=== PATIENT | female | born 1955 | race Caucasian/White ===

== ENCOUNTER 2020-05-08 09:10 | Emergency (ER) | payer MEDICARE, SELFPAY ==
--- NOTE | 2020-05-08 09:14 | ED.FEMALEGU ---
HPI - Female Genitourinary General Chief complaint: Urogenital-Female Stated complaint: uti Time Seen by Provider: 05/08/20 09:29 Source: patient and RN notes reviewed Mode of arrival: ambulatory Limitations: no limitations History of Present Illness HPI Narrative: 64-year-old female presents with concern for 1 day history of frequency, urgency, dysuria. Denies flank pain, nausea, vomiting, fever, abdominal pain. Reports last bowel movement was yesterday. Denies any abnormal vaginal discharge or bleeding. MD elicited complaint: UTI Related Data Allergies Allergy/AdvReac Type Severity Reaction Status Date / Time Quinolones Allergy Mild Unknown Verified 10/13/19 13:04 gemifloxacin Allergy Unknown Unknown Verified 10/13/19 13:04 methylprednisolone AdvReac Unknown anxiety Verified 05/08/20 09:15 Review of Systems Review of Systems: Narrative: CONSTITUTIONAL: Denies malaise, chills, sweats, or fever. CARDIOVASCULAR: Denies chest pain, palpitations, or edema. RESPIRATORY: Denies cough or dyspnea. GASTROINTESTINAL: Denies abdominal pain, nausea, vomiting, diarrhea GENITOURINARY: Reports dysuria, frequency, urgency. Denies flank pain or hematuria. MUSCULOSKELETAL: Denies back pain or myalgia. All systems reviewed & are unremarkable except as noted in HPI and below PMFSH Social History Social History Smoking status: Never smoker Second hand tobacco smoke exposure: No Alcohol intake: never Substance use: never Substance use type: does not use Additional occupation/education comments: Homemaker Gender identity (if verbalized by the patient): Female Comments At time of signature, agree with nursing past medical, surgical, social and family history. There is no relevant family history pertinent to the presenting complaint Exam Narrative: Exam Narrative: GENERAL: Well-appearing, well-nourished, and in no acute distress. HEAD: Normocephalic. EYES: PERRLA, conjunctivae clear. NECK: Supple. No lymphadenopathy CHEST: Clear to auscultation. No respiratory distress. HEART: Regular rate and rhythm. No murmur heard. Normal peripheral pulses. ABDOMEN: Soft, nontender upon palpation, nondistended, no palpable or pulsatile masses, no guarding. No CVA tenderness SKIN: Warm, dry, no rash. NEURO: Alert and oriented x3. PSYCH: Normal mood and affect Course Course Emergency Course: Patient is aware of diagnosis, understands and agrees to treatment plan. Anticipatory guidance given. Patient agrees to follow-up as directed and is aware of reasons to seek care at the emergency department. Portions of this record may have been created with voice recognition software Vital Signs Vital signs: Vital Signs Temperature 97.9 F 05/08/20 09:25 Pulse Rate 96 05/08/20 09:25 Respiratory Rate 16 05/08/20 09:25 Blood Pressure 184/96 H 05/08/20 09:25 Pulse Oximetry 99 05/08/20 09:25 Temperature 97.9 F 05/08/20 09:25 Pulse Rate 96 05/08/20 09:25 Respiratory Rate 16 05/08/20 09:25 Blood Pressure 184/96 H 05/08/20 09:25 Pulse Oximetry 99 05/08/20 09:25 Reviewed. MDM - Female Genitourinary MDM Narrative Medical decision making narrative: Exam findings and UA show no acute concerns or changes; patient is non-toxic appearing and is in no distress. Patient is appropriate for outpatient treatment and follow-up. Differential Diagnosis Differential diagnosis: Likely urinary tract infection and cystitis Lab Data Labs: Urine Glucose Negative Reference Range: Negative Urine Bilirubin Negative Reference Range: Negative Urine Ketone Negative Reference Range: Negative Urine Specific [place] 1.010 Reference Range:1.001-1.035 Urine Blood Trace Reference Range: Negative * * Urine pH
[2020-05-08 09:25] VITALS: BP 184/96; PULSE 96; RESP 16; TEMP 36.6; O2SAT 99
== END 2020-05-08 09:53 | disposition home or self-care (01) ==
PROVIDERS: Emergency Provider Nurse Practitioner; PCP Family Medicine
DX: R30.0 Dysuria (principal); R39.15 Urgency of urination; R35.0 Frequency of micturition
CPT/HCPCS: 81003; 87086; 87088; 99213; G0463

== ENCOUNTER 2020-08-18 21:56 | Emergency (ER) | payer MEDICARE, SELFPAY ==
--- NOTE | ~2020-08-18 | XR_ITS ---
EXAMINATION: XR chest 1V portable INDICATION: Shortness of breath TECHNIQUE: Portable AP chest at 2318 hours COMPARISON: 12/16/2017 FINDINGS: The lung volumes are low. There are minimal airspace opacities of the lung bases. No pleura l effusion or pneumothorax is identified. The cardiomediastinal silhouette is normal. There are aguilar es of anterior fusion procedure in the lower cervical spine. IMPRESSION: 1. Minimal airspace opacities of the lung bases, consistent with atelectasis versus pneumonia. Reviewed, dictated and finalized at location A. IMPRESSION: 1. Minimal airspace opacities of the lung bases, consistent with atelectasis ve rsus pneumonia.
[2020-08-18 22:04] VITALS: BP 167/94; PULSE 115; RESP 30; TEMP 36.6; O2SAT 100
--- NOTE | 2020-08-18 22:12 | ED.GENADULT ---
HPI - General Adult General Chief complaint: Anxiety Stated complaint: Panic attack Time Seen by Provider: 08/18/20 22:03 Source: patient Mode of arrival: ambulatory Limitations: no limitations History of Present Illness HPI narrative: Patient is a 64-year-old female who presents with panic attack with history of similar occurrence took 2 mg of Xanax prior to arrival patient had a panic attack due to having to bring her to the emergency department who has been sick for the last 2 days with fever patient has historically had panic attack when coming to the hospital. Patient presents with acute panic attack and anxiety Related Data Allergies Allergy/AdvReac Type Severity Reaction Status Date / Time Quinolones Allergy Mild Unknown Verified 08/18/20 22:09 gemifloxacin Allergy Unknown Unknown Verified 08/18/20 22:09 methylprednisolone AdvReac Unknown anxiety Verified 08/18/20 22:09 Review of Systems Review of Systems: All systems reviewed & are unremarkable except as noted in HPI and below PMFSH Past Medical History Medical History (Updated 08/18/20 @ 23:56 by Yogesh Pearce PA-C) Panic disorder [episodic paroxysmal anxiety] Surgical History Surgical History Status post cervical spinal fusion Status post hysterectomy with oophorectomy Social History Social History Smoking status: Never smoker Second hand tobacco smoke exposure: No Alcohol intake: never Substance use: never Substance use type: does not use Additional occupation/education comments: Homemaker Gender identity (if verbalized by the patient): Female Exam Narrative: Exam Narrative: GENERAL: Well-appearing, well-nourished, and in no acute distress. HEAD: Normocephalic, atraumatic. EYES: PERRLA and EOMI. ENT: Nares clear, no rhinorrhea or epistaxis. Mucous membranes moist. Oropharynx without tonsillar hypertrophy exudate or other lesions. CHEST: Clear to auscultation. No respiratory distress. No wheezes rales or rhonchi HEART: Regular rate and rhythm. No murmur heard. EXTREMITIES: Normal range of motion. No edema. SKIN: Warm, dry, no rash. NEURO: No focal deficits. Alert and oriented x3. Cranial nerves II through XII grossly intact PSYCH: Acutely anxious Course Course Emergency Course: Patient remained distressed with panic attack despite multiple medications finally with Ativan and Haldol patient subsided the panic attack. Patient family present resting at this time in no distress with resolution of the panic attack patient was placed on oxygen after given the medication she did desat slightly was placed on nasal cannula and is resting fine in the room in no distress Consultations Consultation #1: Discussed case with primary care who is aware of clinical presentation and diagnosis Date: 08/18/20 Time: 23:55 Vital Signs Vital signs: Vital Signs Temperature 97.9 F 08/18/20 22:04 Pulse Rate 115 H 08/18/20 22:04 Respiratory Rate 30 H 08/18/20 22:04 Blood Pressure 167/94 H 08/18/20 22:04 Pulse Oximetry 100 08/18/20 22:04 Temperature 97.9 F 08/18/20 22:04 Pulse Rate 94 08/18/20 23:51 Respiratory Rate 18 08/18/20 23:51 Blood Pressure 115/81 08/18/20 23:51 Pulse Oximetry 100 08/18/20 23:51 Medical Decision Making MDM Narrative Medical decision making narrative: Patient with panic disorder that was anxious and panicking secondary to her being ill in the emergency department with similar occurrences in the past Vital Signs Vital Signs: Vital Signs Temperature 97.9 F 08/18/20 22:04 Pulse Rate 115 H 08/18/20 22:04 Respiratory Rate 30 H 08/18/20 22:04 Blood Pressure 167/94 H 08/18/20 22:04 Pulse Oximetry 100 08/18/20 22:04 Temperature 97.9 F 08/18/20 22:04 Pulse Rate 94 08/18/20 23:51 Respiratory Rate 18 08/18/20 23:51 Blood Pressure 115/81 10
[2020-08-18] MEDS: diazePAM (*CRX) 5 MG TABLET PO (22:19)
[2020-08-18] MEDS: SODIUM CHLORIDE 0.9% IV 1,000 ML 999 ML IV CONT (23:01)
[2020-08-18] MEDS: HALOPERIDOL LACTATE 5 MG/ML VIAL IM (23:02)
[2020-08-18] MEDS: diphenhydrAMINE HCl INJ 50 MG/ML VIAL 25 MG IV PUSH (23:02)
[2020-08-18] MEDS: LORazepam INJ (*CRX) 2 MG/ML VIAL 1 MG IV PUSH (23:02)
[2020-08-18] MEDS: FAMOTIDINE 20 MG/2 ML VIAL IV PUSH (23:02)
[2020-08-18 23:51] VITALS: BP 115/81; PULSE 94; RESP 18; O2SAT 100
[2020-08-19 02:15] VITALS: BP 115/76; PULSE 69; RESP 16; O2SAT 99
[2020-08-19 03:16] VITALS: BP 115/74; PULSE 68; RESP 15; O2SAT 99
[2020-08-19 03:20] VITALS: BP 115/74; PULSE 115; RESP 15; O2SAT 99
--- NOTE | 2020-08-19 04:02 | PC.NURSE ---
This RN attempted to discharge patient. Upon speaking to patient, patient still seems very fatigued and is having difficulty walking. EDP Eitan notified. Per EDP continue to monitor patient.
[2020-08-19 04:32] LABS: Basophils Percent Auto 0.2 % (0.2-1.2); Eosinophils Percent Auto 0.2 % (0-4.4); Hematocrit 38.7 % (37.0-47.0); Immature Granulocyte Absolute 0.03 K/mm3 (0.00-0.031); Immature Granulocyte Percent A 0.3 % (0-0.5); Lymphocytes Absolute Auto 1.39 K/mm3 (0.9-3.2); Lymphocytes Percent Auto 13.7 % (18.3-44.2); Mean Corpuscular HGB Conc 33.6 g/dl (32-36); Mean Corpuscular Hemoglobin 30.4 pg (26-34); Mean Corpuscular Volume 90.4 fl (80-100); Mean Platelet Volume 10.3 fl (7.4-10.4); Monocytes Absolute Auto 0.8 K/mm3 (0.1-0.6); Neutrophils Absolute Auto 7.9 K/mm3 (1.3-6.7); Neutrophils Percent Auto 77.6 % (45.5-73.1); Platelet Count Result 274 k/mm3 (150-375); Red Blood Count 4.28 M/mm3 (4.2-5.4); Red Cell Distribution Width 13.5 % (11.5-14.5); White Blood Count 10.2 K/mm3 (4.5-10.0)
[2020-08-19 04:35] VITALS: BP 129/69; PULSE 72; RESP 16; TEMP 36.8; O2SAT 96
[2020-08-19 05:22] LABS: Anion Gap 8 mmol/L (8-16); Blood Urea Nitrogen 11 mg/dL (7-17); Calcium 9.6 mg/dL (8.4-10.2); Carbon Dioxide 26 mmol/L (22-30); Chloride 106 mmol/L (98-107); Estimated CRCL calculation 54 ml/min; Estimated Glomerular Filt Rate > 60; Glucose 113 mg/dL (65-105); Potassium 3.7 mmol/L (3.4-5.0); Sodium 140 mmol/L (137-145)
[2020-08-19 14:03] LABS: SARS-CoV-2 RNA PCR Negative
== END 2020-08-19 04:38 | disposition home or self-care (01) ==
PROVIDERS: Emergency Medicine Emergency Medical Services; Emergency Provider Emergency Medicine; PCP Family Medicine
DX: F41.9 Anxiety disorder, unspecified (principal); Z20.828 Contact with and (suspected) exposure to other viral communicable diseases
CPT/HCPCS: 36415; 71045; 80048; 85025; 87635; 96361; 96372; 96374; 96375; 99284; A9270; C9803; J1200; J1630; J2060; J7030; U0003

== ENCOUNTER 2021-10-14 19:31 | Emergency (ER) | payer MEDICARE, SELFPAY ==
--- NOTE | 2021-10-14 19:40 | ED.SKABFB ---
HPI - Skin/Abscess/Foreign Bdy General Chief complaint: Skin/Abscess/Foreign Body Stated complaint: Rash Time Seen by Provider: 10/14/21 19:40 Source: patient Mode of arrival: ambulatory Limitations: no limitations History of Present Illness HPI narrative: Radha Lopez is a 66 yo female with a PMH of anxiety, depression, asthma, [facility]. The rash is a fine papular rash on her trunk and tops of feet arms very little on her hands she was handling leaves under bushes mother put after [place] or corrections today, that she had no gloves on. Hours after the exposure when she was in the house after dinner she noticed that she started breaking a rash initially on her back which was itching it is bilateral on her trunk Related Data Allergies Allergy/AdvReac Type Severity Reaction Status Date / Time Quinolones Allergy Mild Unknown Verified 10/18/20 11:07 gemifloxacin Allergy Unknown Unknown Verified 10/18/20 11:07 methylprednisolone AdvReac Unknown anxiety Verified 10/18/20 11:07 Review of Systems Review of Systems: CONSTITUTIONAL: Denies fever, chills, sweats. EYES: Denies visual changes, redness, discharge. ENT: Denies rhinorrhea, congestion, sore throat, otalgia. CARDIOVASCULAR: Denies chest pain, palpitations, edema. RESPIRATORY: Denies dyspnea, wheezing, cough GASTROINTESTINAL: Denies abdominal pain, nausea, vomiting, diarrhea. GENITOURINARY: Denies dysuria, hematuria, abnormal discharge SKIN: Rash on trunk NEUROLOGIC: Denies numbness, or focal weakness. PSYCHIATRIC: Denies anxiety or depression. [facility] Past Medical History Medical History Major depressive disorder, single episode, unspecified Osteopenia Panic disorder [episodic paroxysmal anxiety] Surgical History Surgical History Status post cervical spinal fusion Status post hysterectomy with oophorectomy Family History Family History Father Leukemia Mother Family history of osteoporosis Other Asthma Family history of arthritis Family history of hearing loss Family history of thyroid disease Social History Social History Smoking status: Never smoker Second hand tobacco smoke exposure: No Alcohol intake: never Substance use: never Substance use type: does not use Additional occupation/education comments: Homemaker Gender identity (if verbalized by the patient): Female Comments At time of signature, I agree with nursing past medical, surgical, social and family history. There is no relevant family history pertinent to the presenting complaint. Blood pressure elevated at this visit-referred back to PCP Exam Narrative: GENERAL: This is a well-nourished, well-developed patient, in mild distress. HEAD: normocephalic, atraumatic. EYES: Sclera clear/white. Vision is grossly intact. EARS: External ears normal, . Hearing grossly intact. NOSE: External nose normal without nasal discharge, nares without redness, no rhinorrhea. THROAT: Mucous membranes moist, posterior pharynx pink-no swelling of lips or tongue posterior pharynx appears clear NECK: Neck supple, non-tender CARDIOVASCULAR: Regular rate and rhythm without murmurs, gallops, or rubs. RESPIRATORY: Clear to auscultation. Breath sounds equal bilaterally. No wheezes, rales, or rhonchi. GASTROINTESTINAL: Abdomen soft, non-tender, SKIN: warm, intact with fine papular rash on torso arms and feet, very little on hands, states is pruritic NEURO: awake, alert, and oriented to person, place and time. There were no obvious focal neurologic abnormalities. Steady gait EXTREMITIES: Normal range of motion. BACK: Nontender without deformity Course Course Emergency Course: Patient here with pruritic fine papular rash on torso top of feet arms vivienne
[2021-10-14 19:42] VITALS: BP 159/88; PULSE 91; RESP 18; TEMP 37.1; O2SAT 99
[2021-10-14 19:43] VITALS: BP 159/88; PULSE 91; RESP 18; TEMP 37.1; O2SAT 99
[2021-10-14] MEDS: diphenhydrAMINE HCl CAP 25 MG CAPSULE PO (20:04)
== END 2021-10-14 20:16 | disposition home or self-care (01) ==
PROVIDERS: Emergency Provider Nurse Practitioner; PCP Family Medicine
DX: L23.7 Allergic contact dermatitis due to plants, except food (principal)
CPT/HCPCS: 99213; A9270; G0463; J8540

== ENCOUNTER 2022-12-14 00:16 | Day surgery (SDC) | payer MEDICARE, OTHER, SELFPAY ==
[2022-11-28 13:48] VITALS: BMI 26.1
--- NOTE | 2022-12-13 13:14 | PM.HPGS ---
History of Present Illness History of Present Illness Consent: Risks, benefits, and alternatives have been discussed and questions answered. Patient agrees to proceed with procedure. Chief complaint: neoplasm screening Narrative: Radha Lopez is a 67 year old female Was referred for colon cancer screening. Her last colonoscopy was 10 years ago. At that time she was found to have internal and external hemorrhoids. She has had change in her bowel habits recently. Review of Systems Review of Systems: All systems reviewed & are unremarkable except as noted in HPI and below PMFSH Past Medical History Medical History Major depressive disorder, single episode, unspecified Osteopenia Panic disorder [episodic paroxysmal anxiety] Surgical History Surgical History Status post cervical spinal fusion Status post hysterectomy with oophorectomy Family History Family History Father Leukemia Mother Family history of osteoporosis Other Asthma Family history of arthritis Family history of hearing loss Family history of thyroid disease Social History Social History Smoking status: Never smoker Second hand tobacco smoke exposure: No Alcohol intake: never Substance use: never Substance use type: does not use Living arrangements: with family 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 Gender identity (if verbalized by the patient): Female Spiritual care concerns: No Meds Home Medications and Allergies Home Medications Medication Instructions Recorded Confirmed Type alprazolam 0.25 mg tablet (Xanax) 0.25 mg PO TID PRN anxiety #60 tabs 11/21/22 11/28/22 Rx escitalopram oxalate 10 mg tablet 10 mg PO DAILY 11/28/22 11/28/22 History omeprazole 20 mg capsule,delayed 20 mg PO DAILY 11/28/22 11/28/22 History release omeprazole 20 mg-sodium 1 cap PO DAILY 11/28/22 11/28/22 History bicarbonate 1.1 gram capsule (Zegerid) rizatriptan 10 mg disintegrating 10 mg PO DAILY PRN migraine 11/28/22 11/28/22 History tablet (Maxalt-SERVICE CONTROL OPERATOR) Allergies Allergy/AdvReac Type Severity Reaction Status Date / Time Quinolones Allergy Mild Unknown Verified 12/14/22 08:45 gemifloxacin Allergy Unknown Unknown Verified 12/14/22 08:45 methylprednisolone AdvReac Unknown anxiety Verified 12/14/22 08:45 Exam Const: General: alert Orientation/consciousness: patient oriented x3 Resp: Auscultation: clear to auscultation bilaterally Cardio: Rhythm: regular rhythm GI: GI Palp: Yes Soft to palpation and No Tenderness to palpation present (GI) Neuro: General: patient oriented x3 Assessment and Plan Assessment and plan (1) Colon cancer screening: Code(s): Z12.11 - Encounter for screening for malignant neoplasm of colon Status: Acute Assessment and Plan: Colonoscopy with possible biopsy or polypectomy or cautery or injection of substances.
[2022-12-14 08:46] VITALS: BP 153/88; PULSE 90; RESP 20; TEMP 36.4; O2SAT 100; BMI 25.6
[2022-12-14] MEDS: LACTATED RINGERS 1,000 ML 150 ML IV CONT (08:56)
--- NOTE | 2022-12-14 09:50 | WPDANESEPPF ---
Anes - Initial Pre Proc Eval Procedure: Operation Date: 12/14/22 10:00 Proposed Procedures p Screening Colonoscopy - Eliceo Delgado MD Date/Time: 12/14/22 09:50 Surgeon: Eliceo Delgado MD Pre Op Diagnosis: neoplasm screening Patient Data Age: 67 Gender: F Height: 1.6 m Weight: 65.7 kg Last Vital Signs Temp 97.6 F 12/14/22 08:46 Pulse 90 12/14/22 08:46 Resp 20 12/14/22 08:46 BP 153/88 H 12/14/22 08:46 Pulse Ox 100 12/14/22 08:46 O2 Del Method Room Air 12/14/22 08:46 Allergies Allergy/AdvReac Type Severity Reaction Status Date / Time Quinolones Allergy Mild Unknown Verified 12/14/22 08:45 gemifloxacin Allergy Unknown Unknown Verified 12/14/22 08:45 methylprednisolone AdvReac Unknown anxiety Verified 12/14/22 08:45 Home Medications Medication Instructions Recorded Confirmed Type alprazolam 0.25 mg tablet (Xanax) 0.25 mg PO TID PRN anxiety #60 tabs 11/21/22 11/28/22 Rx escitalopram oxalate 10 mg tablet 10 mg PO DAILY 11/28/22 11/28/22 History omeprazole 20 mg capsule,delayed 20 mg PO DAILY 11/28/22 11/28/22 History release omeprazole 20 mg-sodium 1 cap PO DAILY 11/28/22 11/28/22 History bicarbonate 1.1 gram capsule (Zegerid) rizatriptan 10 mg disintegrating 10 mg PO DAILY PRN migraine 11/28/22 11/28/22 History tablet (Maxalt-IS/IT PROJECT MANAGER) Patient hx anesthesia problems: none Family hx anesthesia problems: none Results Review: All pre-operative results and documents have been reviewed as part of the pre-operative evaluation. [facility] Past Medical History Medical History Major depressive disorder, single episode, unspecified Osteopenia Panic disorder [episodic paroxysmal anxiety] Surgical History Surgical History Status post cervical spinal fusion Status post hysterectomy with oophorectomy Family History Family History Father Leukemia Mother Family history of osteoporosis Other Asthma Family history of arthritis Family history of hearing loss Family history of thyroid disease Social History Social History Smoking status: Never smoker Second hand tobacco smoke exposure: No Alcohol intake: never Substance use: never Substance use type: does not use Living arrangements: with family 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 Gender identity (if verbalized by the patient): Female Spiritual care concerns: No Anes - Eval Final PreProcedure Day of Procedure 12/14/22 09:50 Patient weight: normal Heart: regular rate and rhythm Lungs: clear to auscultation Airway: Mallampati scale class II Neurological: alert and oriented Last oral intake: >/= 8 hours ASA classification: II Emergent: no Anesthetic plan: proceed Anesthesia type and monitoring: general GIVS and standard monitoring Results Review: All pre-operative results and documents have been reviewed as part of the pre-operative evaluation. Informed Consent: The patient's anesthetic plan and its attendant risks and benefits were discussed with the patient/family/POA. Questions were solicited and answers provided to the satisfaction of the patient/family/POA.
[2022-12-14 10:22] VITALS: BP 123/65; PULSE 77; RESP 20; O2SAT 100
[2022-12-14 10:32] VITALS: BP 135/65; PULSE 75; RESP 21; O2SAT 99
[2022-12-14 10:42] VITALS: BP 150/78; PULSE 80; RESP 22; O2SAT 100
== END 2022-12-14 10:52 | disposition home or self-care (01) ==
PROVIDERS: PCP Family Medicine; Visit Provider Internal Medicine Gastroenterology
PROC: 0DJD8ZZ Inspection of Lower Intestinal Tract, Via Natural or Artificial Opening Endoscopic (ICD-10-PCS; CPT 45378; principal; 2022-12-14 10:00)
DX: Z12.11 Encounter for screening for malignant neoplasm of colon (principal); K57.30 Diverticulosis of large intestine without perforation or abscess without bleeding; F41.0 Panic disorder [episodic paroxysmal anxiety]; F32.A Depression, unspecified; Z98.1 Arthrodesis status
CPT/HCPCS: G0121; 36415; 71045; 80053; 83735; 84484; 85025; 85610; 85730; 93005; 96360; 96361; 99284; J2704; J7030; J7120

== ENCOUNTER 2022-12-14 00:51 | Emergency (ER) | payer MEDICARE, SELFPAY ==
[2022-12-14] VITALS (20 sets, daily range): BP systolic 134–153; BP diastolic 75–91; PULSE 72–111; RESP 14–26; TEMP 37.1; O2SAT 97–100
--- NOTE | ~2022-12-14 | XR_ITS ---
Portable chest x-ray Comparison: 08/18/2020 Clinical History: Syncope Findings: Lungs are clear, without focal consolidation or pleural effusion. Cardiomediastinal silho uette is stable. Stable cervical spine fixation hardware noted. Impression: Clear lungs. Reviewed, dictated and finalized at [facility]. TH SAFETY COORDINATOR Impression: Clear lungs.
--- NOTE | 2022-12-14 01:00 | ECG_ITS ---
Measurements Intervals [place] Rate: 101 P: 65 NV: 140 QRS: 63 QRSD: 78 T: 70 QT: 320 QTc: 416 Interpretive Statements SINUS TACHYCARDIA NONSPECIFIC ST & T-WAVE ABNORMALITY ABNORMAL ECG NO PREVIOUS ECG AVAILABLE FOR COMPARISON Electronically Signed On 12-14-2022 10:07:20 SYSTEM CONSULTANT by Jim Whitfield M.D.
--- NOTE | 2022-12-14 02:05 | ED.SYNCOPE ---
HPI - Syncope General Chief Complaint: Syncope Stated Complaint: syncope Time Seen by Provider: 12/14/22 01:49 Source: patient, RN notes reviewed and old records reviewed Mode of arrival: ambulatory Limitations: no limitations History of Present Illness HPI narrative: This is a 67 year old female with history of anxiety who presents for evaluation of a syncopal episode. PAtient states that she started her bowel prep tonight for her colonoscopy in the morning. She states she took a xanax around 11pm to help her sleep. She developed nausea so she jump out of bed, and she ran to restroom. She states she developed dizziness and she sat on toilet. Her states she lean to side and she may be passed out for 30 seconds. He immediately called 911. She denies chest pain, sob, or vomiting. She is having diarrhea due to her bowel prep. Related Data Home Medications Medication Instructions Recorded Confirmed escitalopram oxalate 10 mg tablet 10 mg PO DAILY 11/28/22 11/28/22 omeprazole 20 mg capsule,delayed 20 mg PO DAILY 11/28/22 11/28/22 release omeprazole 20 mg-sodium 1 cap PO DAILY 11/28/22 11/28/22 bicarbonate 1.1 gram capsule (Zegerid) rizatriptan 10 mg disintegrating 10 mg PO DAILY PRN migraine 11/28/22 11/28/22 tablet (Maxalt-SALES SERVICE SUPERVISOR) Allergies Allergy/AdvReac Type Severity Reaction Status Date / Time Quinolones Allergy Mild Unknown Verified 12/14/22 01:59 gemifloxacin Allergy Unknown Unknown Verified 12/14/22 01:59 methylprednisolone AdvReac Unknown anxiety Verified 12/14/22 01:59 Review of Systems Constitutional: Constitutional: Reports fatigue and Denies weakness Cardiovascular: Cardiovascular: Reports syncope, Denies rapid heart rate, Denies irregular heart rhythm, Denies leg edema and Denies dyspnea Respiratory: Respiratory: Denies chest congestion, Denies hemoptysis, Denies excessive phlegm production and Denies dyspnea Gastrointestinal: Gastrointestinal: Reports abdominal pain, Reports bloating, Denies hematochezia, Reports diarrhea, Reports nausea and Denies vomiting Genitourinary: Genitourinary: Denies hematuria and Denies dysuria Musculoskeletal: Musculoskeletal: Denies joint swelling, Denies loss of height and Denies muscle weakness Neurologic: Reports syncope, Denies focal weakness and Denies weakness PMFSH Past Medical History Medical History Major depressive disorder, single episode, unspecified Osteopenia Panic disorder [episodic paroxysmal anxiety] Surgical History Surgical History Status post cervical spinal fusion Status post hysterectomy with oophorectomy Family History Family History Father Leukemia Mother Family history of osteoporosis Other Asthma Family history of arthritis Family history of hearing loss Family history of thyroid disease Social History Social History Smoking status: Never smoker Second hand tobacco smoke exposure: No Alcohol intake: never Substance use: never Substance use type: does not use Living arrangements: with family 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 Gender identity (if verbalized by the patient): Female Spiritual care concerns: No Exam Const: General: no acute distress and alert Nutritional Appearance: well nourished Orientation/consciousness: patient oriented x3 Limitations: no limitations HENMT: Head: normal to inspection Eyes: EOM: EOMs intact bilaterally Neck: Neck: normal visual inspection Chest: Chest palpation & inspection: normal inspection of the chest Resp: Effort & Inspection: normal respiratory effort Auscultation: clear to auscultation bilaterally Cardio: Rate: tachycardic Rhythm: regular rhythm Heart sounds: no murm
[2022-12-14 02:22] LABS: Basophils Percent Auto 0.3 % (0.2-1.2); Eosinophils Absolute Auto 0.1 K/mm3 (0-0.3); Eosinophils Percent Auto 0.9 % (0-4.4); Hemoglobin 13.9 g/dL (12.0-15.0); Immature Granulocyte Absolute 0.03 K/mm3 (0.00-0.031); Immature Granulocyte Percent A 0.3 % (0-0.5); Lymphocytes Absolute Auto 1.27 K/mm3 (0.9-3.2); Lymphocytes Percent Auto 12.2 % (18.3-44.2); Mean Corpuscular HGB Conc 33.1 g/dl (32-36); Mean Corpuscular Volume 90.7 fl (80-100); Mean Platelet Volume 9.9 fl (7.4-10.4); Monocytes Absolute Auto 0.8 K/mm3 (0.1-0.6); Monocytes Percent Auto 7.5 % (2.6-8.5); Neutrophils Absolute Auto 8.2 K/mm3 (1.3-6.7); Neutrophils Percent Auto 78.8 % (45.5-73.1); Platelet Count Result 289 k/mm3 (150-375); Red Blood Count 4.63 M/mm3 (4.2-5.4); Red Cell Distribution Width 13.5 % (11.5-14.5); White Blood Count 10.4 K/mm3 (4.5-10.0)
[2022-12-14] MEDS: SODIUM CHLORIDE 0.9% IV 1,000 ML 999 ML IV CONT ×2 (02:29→03:18)
[2022-12-14 02:32] LABS: Alanine Aminotransferase 21 U/L (6-35); Albumin Level 4.2 g/dL (3.5-5.1); Alkaline Phosphatase 70 U/L (38-126); Anion Gap 8 mmol/L (8-16); Aspartate Amino Transferase 26 U/L (14-36); Bilirubin,Total 0.6 mg/dL (0.2-1.3); Blood Urea Nitrogen 9 mg/dL (7-17); Carbon Dioxide 24 mmol/L (22-30); Chloride 106 mmol/L (98-107); Estimated CRCL calculation 62 ml/min; Estimated Glomerular Filt Rate > 60; Glucose 149 mg/dL (65-110); Magnesium 1.9 mg/dL (1.6-2.3); Potassium 3.4 mmol/L (3.4-5.0); Sodium 138 mmol/L (137-145)
[2022-12-14 02:36] LABS: INR 1.1; Partial Thromboplastin Time 31.1 SECONDS (22.3-36.8); Prothrombin Time 13.6 Seconds (11.1-14.7)
[2022-12-14 02:44] LABS: Troponin I < 0.012 ng/mL (0.000-0.034)
--- NOTE | 2022-12-14 03:05 | PC.NURSE ---
patient ambulated with steady gait and standby assistance. states she still feels weak, but denies dizziness.
== END 2022-12-14 05:12 | disposition home or self-care (01) ==
PROVIDERS: Emergency Provider General Practice; PCP Family Medicine
DX: R55 Syncope and collapse (principal); F32.9 Major depressive disorder, single episode, unspecified; F41.0 Panic disorder [episodic paroxysmal anxiety]; Z98.1 Arthrodesis status; Z90.710 Acquired absence of both cervix and uterus; R00.0 Tachycardia, unspecified; R94.31 Abnormal electrocardiogram [ECG] [EKG]
CPT/HCPCS: 36415; 71045; 80053; 83735; 84484; 85025; 85610; 85730; 93005; 96360; 96361; 99284; J7030

== ENCOUNTER 2024-08-28 15:28 | Emergency (ER) | payer MEDICARE, OTHER, SELFPAY ==
--- NOTE | ~2024-08-28 | XR_ITS ---
EXAMINATION: XR knee RT min 4V DATE: 08/28/2024 16:01 INDICATION: Right knee pain and swelling. TECHNIQUE: 4 views of right knee including standing views were obtained. COMPARISON: None. FINDINGS: Alignment is normal. No fracture. There is mild tricompartmental osteoarthritis. There is a moderate-sized knee joint effusion. IMPRESSION: 1. Mild right knee osteoarthritis. 2. Moderate-sized knee joint effusion. Reviewed, dictated and finalized at location A.
[2024-08-28 15:38] VITALS: BP 111/96; PULSE 97; RESP 20; TEMP 37.5; O2SAT 97
--- NOTE | 2024-08-28 15:45 | ED.GENADULT ---
HPI - General Adult General Chief complaint: Extremity Problem,Nontraumatic Stated complaint: Right Knee Pain Time Seen by Provider: 08/28/24 15:45 Source: patient Mode of arrival: ambulatory Limitations: no limitations History of Present Illness HPI narrative: 69 yo F presents with c/o R knee pain and swelling for 1 month. States she has always had some mild pain to both knees that she assumed was from arthritis but has never had pain like she has now. Pain started after painting her bedroom. Was up and down a ladder several times. States R knee feels tight. Pain with flexion and extension. Worse when bearing weight. All systems reviewed and negative except as noted above. Related Data Home Medications Medication Instructions Recorded Confirmed multivit with min-folic 1 tablet PO DAILY 01/31/24 08/28/24 acid-lutein 400 mcg-250 mcg chewable tablet (Centrum Silver) Allergies Allergy/AdvReac Type Severity Reaction Status Date / Time methylprednisolone AdvReac Unknown anxiety Verified 08/28/24 15:37 Review of Systems Review of Systems: CONSTITUTIONAL: Denies fever, chills, or sweats. EYES: Denies visual changes, redness, or discharge. ENT: Denies rhinorrhea, congestion, sore throat, or otalgia. CARDIOVASCULAR: Denies chest pain, palpitations, or edema. RESPIRATORY: Denies cough or dyspnea. GASTROINTESTINAL: Denies abdominal pain, nausea, vomiting, or diarrhea. GENITOURINARY: Denies dysuria or hematuria. SKIN: Denies rash or itching. MUSCULOSKELETAL: Denies back pain . Reports pain and swelling to right knee. NEUROLOGIC: Denies headache, numbness, or weakness. PSYCHIATRIC: Denies anxiety or depression. All other systems reviewed are negative, except as documented in HPI. [facility] Past Medical History Medical History Major depressive disorder, single episode, unspecified Osteopenia Panic disorder [episodic paroxysmal anxiety] Surgical History Surgical History Hx of tonsillectomy Status post cervical spinal fusion Status post hysterectomy with oophorectomy Family History Family History Father Leukemia Mother Family history of osteoporosis Heart disease Thyroid disorder Other Asthma Family history of arthritis Family history of hearing loss Family history of thyroid disease Social History Social History Smoking status: Never smoker Second hand tobacco smoke exposure: No Alcohol intake: never Substance use: never Substance use type: does not use Living arrangements: with family 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 Gender identity (if verbalized by the patient): Female Spiritual care concerns: No Comments At time of signature, agree with nursing past medical, surgical, social and family history. There is no relevant family history pertinent to the presenting complaint. Exam Narrative: GENERAL: This is a well-nourished, well-developed patient, in no apparent distress. HEAD: normocephalic, atraumatic. EYES: PERRL. Sclera clear/white. Vision is grossly intact. EARS: External ears normal NOSE: External nose normal NECK: Neck supple, non-tender without lymphadenopathy, masses or thyromegaly. CARDIOVASCULAR: Regular rate and rhythm without murmurs, gallops, or rubs. RESPIRATORY: Clear to auscultation. Breath sounds equal bilaterally. No wheezes, rales, or rhonchi. SKIN: warm, Dry, intact with no suspicious lesions or rash, good texture and turgor. NEURO: awake, alert, and oriented to person, place and time. There were no obvious focal neurologic abnormalities. EXTREMITIES:moderate swelling to R knee. No tenderness on palpation. decreased flexion and extension due to pain and swelling. C
== END 2024-08-28 16:30 | disposition home or self-care (01) ==
PROVIDERS: Emergency Provider Nurse Practitioner Family; PCP Family Medicine
DX: M25.461 Effusion, right knee (principal); M17.11 Unilateral primary osteoarthritis, right knee; M85.80 Other specified disorders of bone density and structure, unspecified site
CPT/HCPCS: 73564; 99213; G0463

== ENCOUNTER 2024-10-08 00:15 | Day surgery (SDC) | payer MEDICARE, OTHER, SELFPAY ==
[2024-09-25 13:20] VITALS: BMI 26.5
--- NOTE | 2024-09-25 13:31 | PC.NURSE ---
Report to the Outpatient Waiting Room, entrance under the green pavilion located off [facility], at time _0800am on date _10/08/24 . Planned Procedure Time: _10:00am .? Time changes happen often and if your time is changed the preop area will call you the afternoon before. - You and your visitor will be asked to self-screen and do not enter if you have any COVID symptoms. Please call surgeon if you need to reschedule. - A mask is optional within the hospital at this time. Patients may have clear liquids (water, carbonated beverages, clear teas, apple juice) until 3 hours prior to surgery with a maximum of 20 ounces. - No food from midnight until time of surgery and no smoking (07;00am) Take only the following medications with a SIP of water on the morning of surgery: __Escitalopram, and alprazolam as needed DO NOT STOP ANY OF YOUR OTHER PRESCRIPTION MEDICATIONS PRIOR TO SURGERY EXCEPT THE FOLLOWING Medications to discontinue per physician Hold all vitamins and supplements for 3 days prior per Anesthesia Date to take last dose____10/04/24 Please no make-up, nail vietnamese, hairspray, perfume, deodorant, or body powder the day of surgery.? No jewelry (including any body piercings) or valuables the day of surgery, leave them at home.? Please take a shower or bath the night before, or the morning of, surgery with an antibacterial soap.? Wear comfortable, loose fitting clothing.? - Jewelry must be removed prior to entering the operating room.? Rings and piercings that are not removed may be cut off. - The hospital will not accept responsibility for valuables.? - Please leave all valuables, including medications, at home the day of surgery. If you are going home after surgery, a licensed flatbed driver must drive you home.? - NO public transportation without another adult if you receive anesthesia. - We recommend that an adult stay with you for 24 hours following discharge. - We also recommend that you do not drive, make important decision, drink alcoholic beverages, or take any drugs that were not prescribed by your health care provider for at least 24 hours after your discharge time. Follow any additional instructions given to you from your surgeon. Telephone instructions given to _Patient and asked if any additional questions and then verbalized understanding. Patient advised to call surgeon office or pre surgery nurse liaison [phone] if any additional questions.
--- NOTE | 2024-10-07 07:23 | P.HP_ITS ---
H&P: HPI History of Present Illness Date/Time: 10/07/24 07:23 Chief Complaint: Patient has catching and locking of her right knee with the meniscal tear. She has failed conservative treatment like to consider arthroscopic intervention. Review of Systems Musculoskeletal: Musculoskeletal: Reports arthralgias, Reports joint swelling and Reports stiffness PMFSH Past Medical History Medical History Major depressive disorder, single episode, unspecified Osteopenia Panic disorder [episodic paroxysmal anxiety] Surgical History Surgical History Hx of tonsillectomy Status post cervical spinal fusion Status post hysterectomy with oophorectomy Family History Family History Father Leukemia Mother Family history of osteoporosis Heart disease Thyroid disorder Other Asthma Family history of arthritis Family history of hearing loss Family history of thyroid disease Social History Social History Smoking status: Never smoker Second hand tobacco smoke exposure: No Alcohol intake: never Substance use: never Substance use type: does not use Current Housing: Decline to Answer Concerned About Future Housing: Decline to Answer Difficulty Paying Gas/Electric Bills: Decline to Answer Difficulty Paying for Meds: Decline to Answer Currently Unemployed: Decline to Answer Education: Decline to Answer Difficulty w/ Childcare or Family Care: Decline to Answer Living arrangements: with family Additional living arrangements comments: 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 Gender identity (if verbalized by the patient): Female Spiritual care concerns: No Meds Home Medications and Allergies Home Medications Medication Instructions Recorded Confirmed Type znlkmlmczdjo-zawdadu-rcais acid 1 tablet PO DAILY 01/31/24 09/30/24 History 400 mcg-lutein 250 mcg chewable tablet (Centrum Silver) rizatriptan 10 mg disintegrating 10 mg PO DAILY PRN migraine #10 05/16/24 09/30/24 Rx tablet (Maxalt-[employer]) tabs escitalopram oxalate 10 mg tablet 10 mg PO DAILY #90 tabs 09/01/24 09/30/24 Rx alprazolam 0.25 mg tablet (Xanax) 0.25 mg PO TID PRN anxiety #60 tabs 09/30/24 09/30/24 Rx Allergies Allergy/AdvReac Type Severity Reaction Status Date / Time methylprednisolone AdvReac Intermediate Headache Verified 09/30/24 13:02 Exam Narrative: On exam she has mechanical catching and locking with manipulation. She is tender medially has a positive Elly's. Neurologically she is intact. She walks with an antalgic gait. Eyes: General: appearance normal, both eyes and all related structures Neck: Neck: supple Resp: Effort & Inspection: normal respiratory effort Cardio: Rate: regular rate Rhythm: regular rhythm Knee X-Ray 08/28/24 Assessment and Plan Assessment and plan (1) Acute medial meniscus tear of right knee: Code(s): S83.241A - Other tear of medial meniscus, current injury, right knee, initial encounter Status: Acute Assessment and Plan: Patient has a meniscal tear right. She has failed conservative treatment. She has mechanical catching and locking. She would like to consider arthroscopic i ntervention with partial medial meniscectomy. I have discussed this with her risks benefits limitations and alternatives in detail. Will proceed per her request.
[2024-10-08] VITALS (13 sets, daily range): BP systolic 86–161; BP diastolic 52–82; PULSE 68–98; RESP 14–20; TEMP 36.5–36.7; O2SAT 95–100
[2024-10-08] MEDS: ACETAMINOPHEN 500 MG TABLET 1000 MG PO (08:35)
[2024-10-08] MEDS: KETOROLAC 15 MG/ML VIAL (*BKC) IV PUSH (08:43)
--- NOTE | 2024-10-08 08:59 | WPDHPUPDATE1 ---
History and Physical Update Update Date/Time: 10/08/24 08:59 History and Physical has been reviewed, including an updated exam of the patient. There are NO changes in the patient's condition. Risks, benefits, and alternatives have been discussed and questions answered. Patient agrees to proceed with procedure.
--- NOTE | 2024-10-08 09:05 | WPDANESEPPF ---
Anes - Initial Pre Proc Eval Procedure: Operation Date: 10/08/24 10:00 Proposed Procedures p Right Knee Arthroscopy, Partial Meniscectomy, Proceed As Indicated - Ryan Dominguez MD Date/Time: 10/08/24 09:05 Surgeon: Ryan Dominguez MD Pre Op Diagnosis: right medial meniscal tear Patient Data Age: 69 Gender: F Height: 1.6 m Weight: 66.6 kg Last Vital Signs Temp 36.7 C 10/08/24 08:17 Pulse 91 10/08/24 08:17 Resp 18 10/08/24 08:17 BP 161/82 H 10/08/24 08:17 Pulse Ox 95 10/08/24 08:17 O2 Del Method Room Air 10/08/24 08:17 Allergies Allergy/AdvReac Type Severity Reaction Status Date / Time methylprednisolone AdvReac Intermediate Headache Verified 10/08/24 08:43 Home Medications Medication Instructions Recorded Confirmed Type wrpycubscszj-awltsyl-bszlk acid 1 tablet PO DAILY 01/31/24 09/30/24 History 400 mcg-lutein 250 mcg chewable tablet (Centrum Silver) rizatriptan 10 mg disintegrating 10 mg PO DAILY PRN migraine #10 05/16/24 09/30/24 Rx tablet (Maxalt-[employer]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 [facility] Past Medical History Medical History Major depressive disorder, single episode, unspecified Osteopenia Panic disorder [episodic paroxysmal anxiety] Surgical History Surgical History Hx of tonsillectomy Status post cervical spinal fusion Status post hysterectomy with oophorectomy Family History Family History Father Leukemia Mother Family history of osteoporosis Heart disease Thyroid disorder Other Asthma Family history of arthritis Family history of hearing loss Family history of thyroid disease Social History Social History Smoking status: Never smoker Second hand tobacco smoke exposure: No Alcohol intake: never Substance use: never Substance use type: does not use Current Housing: Decline to Answer Concerned About Future Housing: Decline to Answer Difficulty Paying Gas/Electric Bills: Decline to Answer Difficulty Paying for Meds: Decline to Answer Currently Unemployed: Decline to Answer Education: Decline to Answer Difficulty w/ Childcare or Family Care: Decline to Answer Living arrangements: with family Additional living arrangements comments: 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 Informed Consent: The patient's anesthetic plan and its attendant risks and benefits were discussed with the patient/family/POA. Questions were solicited and answers provided to the satisfaction of the patient/family/POA.
[2024-10-08] MEDS: LIDO 1%/EPINEPHRINE 1:100,000 50 ML VIAL 30 ML INFILTRATE (09:34)
--- NOTE | 2024-10-08 10:17 | W.PM.PROC2 ---
Procedure Note - Detailed Date of Procedure 10/08/24 Pre-op Diagnosis RIGHT medial meniscal tear Post-op Diagnosis Same Procedure Performed RIGHT knee arthroscopy with partial meniscectomy Surgeon Ryan Dominguez MD Anesthesia General Findings Pain and Catching Description of Procedure Patient brought to operating room # 7. An anesthetic was administered. The knee was sterilely prepped and draped in the usual manner. Standard portals were used. Superior medial portal was used for the outflow cannula, inferior lateral portal was used for the scope, inferior medial portal was used for the instruments. Arthroscopy was performed, the patellar femoral joint degenerative changes. The medial compartment showed a complex tear. The lateral compartment showed fraying. The ACL was intact. Using baskets and navid the meniscal tear was trimmed back to a stable base so the nothing further could be pulled into the joint. Any loose or delaminated fragments were gently trimmed to a stable base. At this point the instruments were withdrawn, sutures placed and patient left the operating room in satisfactory condition. Estimated Blood Loss 20 Drains No Packing No Pathology None sent Complications No immediate complications Condition Stable Disposition PACU [facility] Billing Surgery - Charge Forward: Surgery Billing ([id number] Arthroscopy partial meniscectomy)
[2024-10-08] MEDS: LACTATED RINGERS 1,000 ML 30 ML IV CONT (10:22)
== END 2024-10-08 13:52 | disposition home or self-care (01) ==
PROVIDERS: PCP Family Medicine; Visit Provider Orthopaedic Surgery
PROC: (CPT 29870; principal; 2024-10-08 10:00)
DX: M23.331 Other meniscus derangements, other medial meniscus, right knee (principal); F41.0 Panic disorder [episodic paroxysmal anxiety]; F32.9 Major depressive disorder, single episode, unspecified; Z98.1 Arthrodesis status
CPT/HCPCS: 29881; A9270; J0330; J1100; J1885; J2003; J2004; J2405; J2704; J3010; J7120

== ENCOUNTER 2024-12-29 16:30 | Inpatient (IN) | payer MEDICARE, SELFPAY ==
[2024-12-29] VITALS (10 sets, daily range): BP systolic 144–194; BP diastolic 72–94; PULSE 88–107; RESP 16–18; TEMP 36.6–36.9; O2SAT 95–100; BMI 26.2
--- NOTE | ~2024-12-29 | NM_ITS ---
EXAMINATION: NM john stress w perfusion DATE: 12/31/2024 10:37 FAST FOOD MANAGER INDICATION: Chest pain TECHNIQUE: Rest images were obtained following intravenous administration of 10 mCi Tc99m tetrofosmin (Myoview). The patient was infused intravenously with Lexiscan (regadenoson). Then, 31.8 mCi Tc99m t etrofosmin (Myoview) was administered intravenously, and stress images were obtained. Data was recons tructed into short axis and horizontal and vertical long axis SPECT images. Gated SPECT images were a lso obtained. COMPARISON: None. FINDINGS: There is no definite reversible or fixed perfusion abnormality to suggest ischemia or infar ction. There is no segmental wall motion abnormality. Left ventricular ejection fraction measures 7 0%. IMPRESSION: 1. No definite ischemia or infarct. 2. Normal left ventricular ejection fraction measuring 70%. Reviewed, dictated and finalized at location B. FOOD MANAGER
--- NOTE | ~2024-12-29 | US_ITS ---
EXAMINATION: US venous doppler LE RT DATE: 12/30/2024 11:45 INDICATION: Right lower limb pain and swelling. TECHNIQUE: Grayscale ultrasound images without and with compression and Doppler ultrasound images of the right lower extremity veins were obtained. COMPARISON: Ultrasound 04/23/2013 FINDINGS: The visualized portions of right common femoral vein, profunda (deep) femoral vein, femoral vein, pop liteal vein, peroneal veins, posterior tibial veins, and greater saphenous vein outflow are patent. IMPRESSION: 1. No deep venous thrombosis. Reviewed, dictated and finalized at location A. PREVENTION SPECIALIST
--- NOTE | ~2024-12-29 | XR_ITS ---
EXAMINATION: XR chest 2V Exam Date/Time: 12/29/2024 17:08 OPTICAL INSTRUMENT INSPECTOR HISTORY: chest pain Comparison: 12/14/2022. RESULT: Lines, tubes, and devices: ACDF hardware. Lungs and pleura: Clear. Cardiomediastinal silhouette: Stable. Other: No acute osseous or upper abdominal finding. IMPRESSION: No acute cardiopulmonary process. Reviewed, dictated and finalized at location K. CAL INSTRUMENT INSPECTOR
--- NOTE | 2024-12-29 16:36 | ECG_ITS ---
Test Date: 2024-12-29 16:51:41 Measurements Intervals [place] Rate: 97 P: 48 DC: 143 QRS: 26 QRSD: 77 T: 60 QT: 348 QTc: 444 Interpretive Statements SINUS RHYTHM BASELINE ARTIFACT- I, II, III, AVR, AVL, AVF, V4-V6 NORMAL ECG No previous ECG available for comparison Electronically Signed On 12-29-2024 19:05:43 [employer] by Fabian Barbour D.O.
--- NOTE | 2024-12-29 16:58 | ED.CHESTPAIN ---
HPI - Chest Pain General Chief Complaint: Chest Pain Stated Complaint: chest discomfort, hypertensive Time Seen by Provider: 12/29/24 16:37 History of Present Illness HPI narrative: Patient is a 69-year-old female who presents ER with central chest pain. Ongoing for 3 days. Central in her chest. Pressure in nature. Waxes and wanes in intensity. When it is at its most intense she has discomfort between her shoulder blades and going into her neck. Mild nausea at times. No vomiting. Unsure if she has exertional discomfort as she has above the knee and cannot walk around. No history of heart disease. No history of hypertension but her blood pressure is now been running in the 190 systolic. Mild stress recently since her had a hernia repair but he is up and doing well at this time. Related Data Home Medications ?Medication ?Instructions ?Recorded ?Confirmed ?Last Taken ?Type pijofvaxxffy-srqaurj-jfyqu acid 1 tablet PO DAILY 01/31/24 12/01/24 Unknown History 400 mcg-lutein 250 mcg chewable tablet (Centrum Silver) Allergies Allergy/AdvReac Type Severity Reaction Status Date / Time methylprednisolone AdvReac Intermediate Headache Verified 12/01/24 13:03 Review of Systems Review of Systems: All systems reviewed & are unremarkable except as noted in HPI and below Constitutional: Constitutional: Reports no additional constitutional complaints Cardiovascular: Cardiovascular: Reports no additional cardiovascular complaints Respiratory: Respiratory: Reports no additional respiratory complaints Gastrointestinal: Gastrointestinal: Reports no additional gastrointestinal complaints [facility] Past Medical History Medical History Major depressive disorder, single episode, unspecified Osteopenia Panic disorder [episodic paroxysmal anxiety] Surgical History Surgical History Hx of tonsillectomy Status post hysterectomy with oophorectomy Status post cervical spinal fusion Family History Family History Father Leukemia Mother Family history of osteoporosis Heart disease Thyroid disorder Other Asthma Family history of arthritis Family history of hearing loss Family history of thyroid disease Social History Social History Smoking status: Never smoker Second hand tobacco smoke exposure: No Alcohol intake: never Substance use: never Substance use type: does not use Current Housing: Decline to Answer Concerned About Future Housing: Decline to Answer Difficulty Paying Gas/Electric Bills: Decline to Answer Difficulty Paying for Meds: Decline to Answer Currently Unemployed: Decline to Answer Education: Decline to Answer Difficulty w/ Childcare or Family Care: Decline to Answer Living arrangements: with family Additional living arrangements comments: 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 Gender identity (if verbalized by the patient): Female Spiritual care concerns: No Exam Narrative: GENERAL: Well-appearing, well-nourished, and in no acute distress. HEAD: Normocephalic, atraumatic. ENT: Mucous membranes moist. CHEST: Clear to auscultation. No respiratory distress. HEART: Regular rate and rhythm. Normal peripheral pulses. ABDOMEN: Soft, nontender, nondistended. EXTREMITIES: Normal range of motion. No edema. SKIN: Warm, dry, no rash. NEURO: Alert and oriented x3. PSYCH: Normal mood and affect. Course Course Emergency Course: Patient resting comfortably. Informed of results. Admit to hospitalist service. Vital Signs Vital signs: Vital Signs Temperature 97.9 F 12/29/24 16:38 Pulse Rate 99 12/29/24 16:38 Respiratory Rate 16 12/29/24 16:38 Blood Pressure 194/90 H 12/29/24 16:38 Pulse Oximetry 98 12/29/24 16:38 Oxygen Delivery Room Air 12/29/24 16:38 Temperature 97.9 F 12/29/24 16:38 Pulse Rate 97 12/29/24 19:03 Respiratory Rate 18 12/29/24 19:03 Blood Pressure 171/72 H 12/29/24 19:03 Pulse Oximetry 98 12/29/24 19:03 Oxygen Delivery Room Air 12/29/24 16:44 MDM - Chest Pain Lab Data 12/29/24 16:58 12/29/24 16:58 Labs: Lab Results 12/29/24 Range/Units 16:58 WBC 9.9 (4.5-10.0) K/mm3 RBC 4.59 (4.2-5.4) M/mm3 Hgb 14.0 (12.0-15.0) g/dL Hct 42.2 (37.0-47.0) % MCV 91.9 (80-100) fl MCH 30.5 (26-34) pg MCHC 33.2 (32-36) g/dl RDW 13.2 (11.5-14.5) % Plt Count 300 (150-375) k/mm3 MPV 9.5 (7.4-10.4) fl Immature Gran % (Auto) 0.2 (0-0.5) % Neut % (Auto) 63.1 (45.5-73.1) % Lymph % (Auto) 26.7 (18.3-44.2) % Coles % (Auto) 8.8 H (2.6-8.5) % Eos % (Auto) 1.0 (0-4.4) % Baso % (Auto) 0.2 (0.2-1.2) % Lymph # (Auto) 2.64 (0.9-3.2) K/mm3 Coles # (Auto) 0.9 H (0.1-0.6) K/mm3 Eos # (Auto) 0.1 (0-0.3) K/mm3 Baso # (Auto) 0.0 (0.0-0.1) K/mm3 Abs Immat Gran (auto) 0.02 (0.00-0.031) K/mm3 Absolute Neuts (auto) 6.2 (1.3-6.7) K/mm3 Absolute Nucleated RBC 0.000 (0.0-0.012) K/mm3 Nucleated RBC % 0.0 (0.0-0.2) % PT 13.0 (11.1-14.7) Seconds INR 1.0 APTT 30.8 (22.3-36.8) Seconds Sodium 140 (137-145) mmol/L Potassium 3.8 (3.4-5.0) mmol/L Chloride 103 (98-107) mmol/L Carbon Dioxide 27 (22-30) mmol/L Anion Gap 10 (4-12) mmol/L BUN 13 (7-17) mg/dL Creatinine 0.66 L (0.7-1.0) mg/dL Estim Creat Clear Calc 62 ml/min Estimated GFR > 60 (59 - ) Glucose 109 (65-110) mg/dL Calcium 10.1 (8.4-10.2) mg/dL Total Bilirubin 0.5 (0.2-1.3) mg/dL AST 24 (14-36) U/L ALT 20 (6-35) U/L Alkaline Phosphatase 92 (38-126) U/L Troponin I < 0.012 (0.000-0.034) ng/mL Total Protein 8.0 (6.3-8.2) g/dL Albumin 4.5 (3.5-5.1) g/dL Lipase 162 (23-300) U/L Imaging Data Radiologist's impression: ITS Impressions Chest X-Ray 12/29/24 17:21 IMPRESSION: No acute cardiopulmonary process. ECG Data EKG #1: ECG completion date: 12/29/24 ECG completion time: 16:51 EKG Interpretation: normal rate (97), sinus rhythm, non-specific ST changes, normal QRS, normal QT and NL axis Discharge Plan Discharge Clinical Impression: Chest pain Patient Disposition: Still a Patient Condition: Stable Patient Language: Djiboutian Prescriptions: No Action Centrum Silver 400-250 mcg tablet,chewable 1 tablet PO DAILY alprazolam [Xanax] 0.25 mg tablet 0.25 mg PO TID PRN (Reason: anxiety) Qty: 60 0RF hydrocodone-acetaminophen 5-325 mg tablet 1 tablet PO Q4H PRN (Reason: pain) Qty: 30 0RF rizatriptan [Maxalt-B[employer]RUPT[employer] PROCESSOR] 10 mg tablet,disintegrating 10 mg PO DAILY PRN (Reason: migraine) Qty: 10 5RF Rx Instructions: one po prn migraines, may repeat in 2hrs, max 2 per day escitalopram oxalate 10 mg tablet 10 mg PO DAILY Qty: 90 1RF Follow-up/Referrals: Rashawn Monroe MD [Primary Care Provider] - Quality HEART score for chest pain patients History: moderately suspicious ECG: non specific repolarization disturbance/LBTB/PM Age: > or = to 65 years Risk factors: 1 or 2 risk factors
[2024-12-29 17:04] LABS: Basophils Percent Auto 0.2 % (0.2-1.2); Eosinophils Absolute Auto 0.1 K/mm3 (0-0.3); Hematocrit 42.2 % (37.0-47.0); Immature Granulocyte Absolute 0.02 K/mm3 (0.00-0.031); Immature Granulocyte Percent A 0.2 % (0-0.5); Lymphocytes Absolute Auto 2.64 K/mm3 (0.9-3.2); Lymphocytes Percent Auto 26.7 % (18.3-44.2); Mean Corpuscular HGB Conc 33.2 g/dl (32-36); Mean Corpuscular Hemoglobin 30.5 pg (26-34); Mean Corpuscular Volume 91.9 fl (80-100); Mean Platelet Volume 9.5 fl (7.4-10.4); Monocytes Absolute Auto 0.9 K/mm3 (0.1-0.6); Monocytes Percent Auto 8.8 % (2.6-8.5); Neutrophils Absolute Auto 6.2 K/mm3 (1.3-6.7); Neutrophils Percent Auto 63.1 % (45.5-73.1); Platelet Count Result 300 k/mm3 (150-375); Red Blood Count 4.59 M/mm3 (4.2-5.4); Red Cell Distribution Width 13.2 % (11.5-14.5); White Blood Count 9.9 K/mm3 (4.5-10.0)
[2024-12-29 17:14] LABS: Alanine Aminotransferase 20 U/L (6-35); Albumin Level 4.5 g/dL (3.5-5.1); Alkaline Phosphatase 92 U/L (38-126); Anion Gap 10 mmol/L (4-12); Aspartate Amino Transferase 24 U/L (14-36); Bilirubin,Total 0.5 mg/dL (0.2-1.3); Blood Urea Nitrogen 13 mg/dL (7-17); Calcium 10.1 mg/dL (8.4-10.2); Carbon Dioxide 27 mmol/L (22-30); Chloride 103 mmol/L (98-107); Estimated CRCL calculation 62 ml/min; Estimated Glomerular Filt Rate > 60; Glucose 109 mg/dL (65-110); Lipase 162 U/L (23-300); Potassium 3.8 mmol/L (3.4-5.0); Sodium 140 mmol/L (137-145)
[2024-12-29 17:16] LABS: Partial Thromboplastin Time 30.8 Seconds (22.3-36.8)
[2024-12-29 17:25] LABS: Troponin I < 0.012 ng/mL (0.000-0.034)
[2024-12-29] MEDS: ASPIRIN 81 MG CHEWABLE TABLET 324 MG PO (17:48)
--- NOTE | 2024-12-29 19:32 | ECG_ITS ---
Test Date: 2024-12-29 19:36:08 Measurements Intervals [place] Rate: 93 P: 53 NE: 138 QRS: 29 QRSD: 75 T: 52 QT: 317 QTc: 396 Interpretive Statements SINUS RHYTHM BASELINE ARTIFACT- I, II, III, AVR, AVL, AVF, V4-V6 NORMAL ECG Compared to ECG 12/29/2024 16:51:41 No significant changes Electronically Signed On 12-30-2024 06:22:22 [employer] by Fabian Barbour D.O.
[2024-12-29 20:00] LABS: Troponin I < 0.012 ng/mL (0.000-0.034)
--- NOTE | 2024-12-29 21:30 | ADMGEN ---
This patient, Rdaha Lopez, was admitted to IMU Room 200-01. Patient/family oriented to hospital policies and general routines including ID bracelet, bed and alarms, visiting hours, pain management, procedures, bathroom and other care routines, personal items, smoking policy, room service/diet, and visiting hours. Information on how to activate the Rapid Response Team has been discussed. Patient/Family are encouraged to report perceived risks to care and to ask questions if they do not understand what they are told or what they should do.
--- NOTE | 2024-12-29 21:31 | ECG_ITS ---
Test Date: 2024-12-29 21:44:55 Measurements Intervals [place] Rate: 100 P: 147 [place]: 137 QRS: 136 QRSD: 78 T: 151 QT: 340 QTc: 440 Interpretive Statements SINUS TACHYCARDIA ARM LEADS REVERSED BORDERLINE T WAVE ABNORMALITY- INFERIOR LEADS BASELINE ARTIFACT- I, II, III ,AVL, AVF BORDERLINE ECG Compared to ECG 12/29/2024 19:36:08 HEART RATE HAS INCREASED Electronically Signed On 12-30-2024 06:27:38 [employer] by Fabian Barbour D.O.
[2024-12-29] MEDS: NITROGLYCERIN SL 0.4 MG TABLET SUBLINGUAL (21:40)
--- NOTE | 2024-12-29 22:10 | PM.IMHP ---
H&P: HPI History of Present Illness Date/Time: 12/29/24 22:10 Chief Complaint: Chest pain. Narrative: This is a very pleasant 69-year-old female with history of headaches, subclinical hypothyroidism, gastroesophageal reflux disease, depression, and anxiety who presented to the emergency department with complaints of chest pain. She gives a 3 day history of constant pressure-like pain in the mid chest which occasionally radiates into the neck and shoulder blades. It seems to wax and wane in intensity and she has not noticed any significant aggravating factors. She has not been very mobile due to ongoing right knee pain following a right knee arthroscopy with partial meniscectomy towards the end of September and thus she cannot say whether not it is worth with exertion. Initially she thought her symptoms were due to reflux and she took chewable Zantac which gave her no relief. Sublingual nitroglycerin did seem to help somewhat. She had nausea in the ED with her chest discomfort but that has not been an ongoing problem. She has been taking acetaminophen and occasionally ibuprofen for her ongoing knee pain but denies that she takes ibuprofen daily and when she does take it is only 400 mg x 1. She denies syncope, near syncope, shortness of breath, pleuritic pain, palpitations, bloating, belching, melena, calf pain, and edema. No history of venous thromboembolism, peptic ulcers, or cardiac disease. She has never had similar symptoms. Of note she does report a bit of an increase in stress recently. In the ED: She was afebrile on arrival. Blood pressures have been running in the 170s to 190 systolic. CMP and CBC were unremarkable. Initial troponin was negative. EKG showed sinus rhythm without concerning ST segment changes. Chest x-ray showed no acute cardiopulmonary disease. She was given aspirin 324 mg and is being admitted in this setting for close monitoring. Regarding her blood pressures, it is common for her blood pressures to be elevated in a medical setting and she reports that it is very rarely elevated when she takes at home. Review of Systems Review of Systems: 12 systems were reviewed and are negative except for as per HPI. [facility] Past Medical History Medical History Seasonal allergic rhinitis Gastro-esophageal reflux disease without esophagitis Subclinical hyperthyroidism Major depressive disorder, single episode, unspecified Osteopenia Panic disorder [episodic paroxysmal anxiety] Surgical History Surgical History History of dilation and curettage History of appendectomy History of arthroscopy of right knee (09/2024) with partial meniscectomy History of tonsillectomy History of hysterectomy with oophorectomy History of fusion of cervical spine Family History Family History Father Leukemia Mother Family history of osteoporosis Heart disease Thyroid disorder Other Asthma Family history of arthritis Family history of hearing loss Family history of thyroid disease Social History Social History Social History: Surrogate medical decision maker: Pierre Lopez, spouse ([phone]). Code status: Full code. Smoking status: Never smoker Second hand tobacco smoke exposure: No Alcohol intake: never Substance use: never Substance use type: does not use Do You Feel Safe in your Home?: Yes Lack of Transportation: No Lack of Food: Never True Current Housing: I Have Housing Concerned About Future Housing: No Difficulty Paying Gas/Electric Bills: No Difficulty Paying for Meds: No Currently Unemployed: No Education: Decline to Answer Difficulty w/ Childcare or Family Care: No Living arrangements: with family Additional living arrangements comments: Lives with in [place]. 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. Spiritual care concerns: No Meds Home Medications and Allergies Home Medications ?Medication ?Instructions ?Recorded ?Confirmed ?Type zrfifvyxyfhi-xtfyhcr-xlatu acid 1 tablet PO DAILY 01/31/24 12/29/24 History 400 mcg-lutein 250 mcg chewable tablet (Centrum Silver) rizatriptan 10 mg disintegrating 10 mg PO DAILY PRN migraine #10 05/16/24 12/29/24 Rx tablet (Maxalt-PRINTING GREY CLOTH TENDER) tabs alprazolam 0.25 mg tablet (Xanax) 0.25 mg PO TID PRN anxiety #60 tabs 09/30/24 12/29/24 Rx acetaminophen 500 mg tablet 500 mg PO Q6H PRN pain or fever 12/29/24 12/29/24 History calcium 250 mg (as 2 tablet PO DAILY 12/29/24 12/29/24 History citrate)-vitamin D3 5 mcg (200 unit) tablet cyanocobalamin (vitamin B-12) 1,000 mcg PO DAILY 12/29/24 12/29/24 History 1,000 mcg capsule escitalopram oxalate 10 mg tablet 10 mg PO HS 12/29/24 12/29/24 History glucosamine-chondroitin 250 mg-200 2 tablet PO ONCE 12/29/24 12/29/24 History mg tablet (Osteo Bi-Flex) ibuprofen 400 mg tablet (IBU) 400 mg PO Q6H PRN pain 12/29/24 12/29/24 History potassium 99 mg tablet 99 mg PO DAILY 12/29/24 12/29/24 History Allergies Allergy/AdvReac Type Severity Reaction Status Date / Time methylprednisolone AdvReac Intermediate Headache Verified 12/01/24 13:03 Vital Signs Vital Signs - 24 hr 12/29/24 16:38 12/29/24 16:44 12/29/24 17:50 Temperature 97.9 F Pulse Rate 99 102 H Respiratory Rate 16 18 Blood Pressure 194/90 H 184/94 H Pulse Oximetry 98 99 98 Oxygen Delivery Room Air Room Air 12/29/24 19:03 12/29/24 20:15 12/29/24 22:02 Temperature 98.5 F Pulse Rate 97 93 94 Respiratory Rate 18 18 18 Blood Pressure 171/72 H 163/89 H 172/94 H Pulse Oximetry 98 95 100 Oxygen Delivery Exam Narrative: General: Well-developed, nontoxic-appearing female sitting up in bed in no acute distress. Weight: 67.3 kg. BMI: 26.3. HEENT: Normocephalic, atraumatic. PERRL, EOMI. Sclera anicteric. Oral mucosa moist. Oropharynx clear. Neck: Supple. No JVD. Respiratory: Lungs are clear to auscultation bilaterally. Cardiovascular: Regular rate and rhythm with S1-S2. Chest: No tenderness to palpation over the chest wall. Gastrointestinal: Abdomen is soft, nontender, and nondistended with positive bowel sounds. Skin: Warm and dry. No rash or lesions on limited exam. Extremities: No cyanosis, clubbing, or edema of the calves. Radial and pedal pulses intact. No palpable knots or cords. Negative Breanne sign bilaterally. Musculoskeletal: Mild swelling over the right knee. No erythema or warmth. Negative ballottement. Neurological: Alert. Cranial nerves 2-12 are grossly intact. No gross focal deficits to casual conversation. Psychiatric: Pleasant and cooperative with normal mood and affect. Judgment and insight intact. H&P: Results Labs Labs: Short CBC 12/29/24 Range/Units 16:58 WBC 9.9 (4.5-10.0) K/mm3 Hgb 14.0 (12.0-15.0) g/dL Hct 42.2 (37.0-47.0) % Plt Count 300 (150-375) k/mm3 BMP 12/29/24 16:58 Sodium 140 Potassium 3.8 Chloride 103 Carbon Dioxide 27 BUN 13 Creatinine 0.66 L Glucose 109 Calcium 10.1 Cardiac Enzymes 12/29/24 12/29/24 Range/Units 16:58 19:34 Troponin I < 0.012 < 0.012 (0.000-0.034) ng/mL Liver Function 12/29/24 Range/Units 16:58 Total Bilirubin 0.5 (0.2-1.3) mg/dL AST 24 (14-36) U/L ALT 20 (6-35) U/L Alkaline Phosphatase 92 (38-126) U/L Albumin 4.5 (3.5-5.1) g/dL Impressions Chest X-Ray 12/29/24 17:21 IMPRESSION: No acute cardiopulmonary process. Assessment and Plan Assessment and plan (1) Chest pain: Code(s): R07.9 - Chest pain, unspecified Status: Acute (2) Elevated blood pressure reading: Code(s): R03.0 - Elevated blood-pressure reading, without diagnosis of hypertension Status: Acute (3) Anxiety: Code(s): F41.9 - Anxiety disorder, unspecified Status: Acute (4) Gastroesophageal reflux disease: Code(s): K21.9 - Gastro-esophageal reflux disease without esophagitis Status: Acute Plan The patient presented to the emergency department for evaluation of mid chest pressure as detailed in HPI. Labs, imaging, EKG, and all reports were personally reviewed. EKG does not show any concerning ST segment changes and she has rule out for acute coronary syndrome by serial troponins. It would be unusual for this to be cardiac pain given the negative workup thus far and due to the fact that his been going on for 3 days. Pulmonary embolism is a consideration given decreased mobility following knee arthroscopy about 2.5 months ago though her exam is not suggestive of deep venous thrombosis and her history seems less likely for PE. She does not have reproducible tenderness to palpation over the chest wall. Symptoms could be related to possible gastritis due to NSAID use and an increase in stress recently though her ibuprofen use does not seem to be significant. D-dimer is pending and if that is elevated she will need a chest CTA. GI cocktail ordered. I will ask Cardiology to see her in consultation. Blood pressures are improving now that she is a bit more settled in her room. Continue to monitor closely and consider initiation of antihypertensives depending on how she trends. She will likely need ambulatory blood pressure monitoring. Her home medications will be reviewed and resumed as appropriate. Findings and treatment plan were discussed with the patient, her , and son who were at bedside. Questions were solicited and answered to satisfaction. The patient's medical management will be taken over by the hospitalist team in a.m. Quality VTE Prophylaxis VTE prophylaxis: pharmacologic ordered The patient has been admitted under observation status. Hospitalist MIPS Advance Care Plan I have confirmed that the patient's Advanced Care Plan is present, code status is documented, or surrogate decision maker is listed in patient medical record.: Yes Medication Reconciliation I have utilized all available resources to obtain, update and review the patients current medications (includes all prescriptions, OTC, herbals, cannabis, and nutritional supplements).: Yes
[2024-12-29] MEDS: HYDROcodone/acetaminophen (*CRX) 5-325 MG TABLET 1 TAB PO (22:24)
[2024-12-29 23:15] LABS: Troponin I < 0.012 ng/mL (0.000-0.034)
[2024-12-30] VITALS (15 sets, daily range): BP systolic 124–154; BP diastolic 66–78; PULSE 67–86; RESP 12–18; TEMP 36.4–36.8; O2SAT 98–100
--- NOTE | 2024-12-30 | ECHO_ITS ---
Patient Info Name: Radha Lopez Age: 69 years : 1955 Gender: Female Ht: 63 in Wt: 149 lbs BSA: 1.75 m2 HR: 77 bpm BP: 154 / 66 mmHg Heart Rhythm: Sinus Rhythm Technical Quality: Fair Exam Date: 12/30/2024 2:13 PM Exam Location: Echo Lab Patient Status: Inpatient Admit Date: 12/29/2024 Staff Ordering Physician: Galo Taveras MD (alexey/demetria) Trading Specialist: Bahman Boss RDCS Attending Provider: Thomas Guerin MD Referring Physician: Nitin STYLES; Exam Type: CA echo doppler color flow Study Info Indications - CHEST PAIN Complete two-dimensional, color flow and Doppler transthoracic echocardiogram is performed. Summary 1. Technically difficult study with limited views. 2. Left ventricular chamber dimension is normal. 3. Left ventricular systolic function is normal, estimated at 65-70%. 4. The left ventricular diastolic function is grade I diastolic dysfunction. 5. Right ventricular systolic function is normal. 6. There is small anterior pericardial effusion. 7. No significant valvular disease. Left Ventricle Left ventricular chamber dimension is normal. Left ventricular systolic function is normal, estimated at 65-70%. There is no increased left ventricular wall thickness. The left ventricular diastolic function is grade I diastolic dysfunction. Right Ventricle Right ventricular chamber dimension is normal. Right ventricular systolic function is normal. Left Atria Left atrial chamber dimension is normal. Right Atria Right atrial chamber dimension is normal. Atrial Septum Intact interatrial septum visualized by color flow imaging. Aortic Valve The aortic valve is not well visualized. There is no aortic valve stenosis. There is no aortic valve regurgitation. Pulmonic Valve The pulmonic valve is not well visualized. Mitral Valve There is trace mitral valve regurgitation. Tricuspid Valve There is trace tricuspid valve regurgitation. Pericardium/Pleural There is small anterior pericardial effusion. Inferior Vena Cava Normal inferior vena cava with >50% collapse upon inspiration consistent with normal right atrial pressure, 3 mmHg. Aorta The aortic root size at the sinus of Valsalva is normal. Left Ventricular Outflow Tract Name Value Normal LVOT 2D LVOT Diameter 1.7 cm LVOT Doppler LVOT Peak Gradient 5 mmHg LVOT Mean Gradient 4 mmHg LVOT VTI 25 cm LVOT VTI/AV VTI Ratio 0.9 LVOT Stroke Volume 53 ml LVOT CO 4.5 l/min LVOT CI 2.6 l/min/m2 Pulmonic Valve Name Value Normal RVOT Doppler RVOT Peak Gradient 3 mmHg PV Doppler PV Peak Gradient 2 mmHg Mitral Valve Name Value Normal MV Doppler MV Decel Kings 287 cm/s2 MV PHT 56 ms MV Area (PHT) 3.9 cm2 4.0-5.0 MV Diastolic Function MV E Peak Velocity 56 cm/s MV A Peak Velocity 85 cm/s MV E/A 0.7 MV Decel Time 195 ms MV Annular TDI MV E/e' (Septal) 8.3 <=8.0 MV E/e' (Lateral) 5.9 <=8.0 MV E/e' (Average) 7.1 Tricuspid Valve Name Value Normal Estimated PAP/RSVP RA Pressure 3 mmHg <=5 Aorta Name Value Normal Ascending Aorta Ao Root Diameter (MM) 3.3 cm Ao Root Diam Index (MM) 1.9 cm/m2 Aortic Valve Name Value Normal AV Doppler AV Peak Velocity 145 cm/s AV Peak Gradient 8 mmHg AV Mean Gradient 4 mmHg AV VTI 27 cm AV Area (Cont Eq VTI) 2.0 cm2 >=3.0 AV Area (Cont Eq Tacho) 1.7 cm2 AV Regurgitation 2D LVOT Area 2.2 cm2 Ventricles Name Value Normal LV Dimensions 2D/MM IVS Diastolic Thickness (2D) 0.8 cm 0.6-1.0 LVID Diastole (2D) 4.2 cm 3.8-5.2 LVIW Diastolic Thickness (2D) 1.0 cm 0.6-0.9 LVID Systole (2D) 2.4 cm 2.2-3.5 LVOT Diameter 1.7 cm LV Mass (2D Cubed) 115.97 g 67.00-162.00 LV Mass Index (2D Cubed) 66 g/m2 43-95 Relative Wall Thickness (2D) 0.48 LV Fractional Shortening/Ejection Fraction 2D/MM LV Fractional Shortening (2D) 42 % 27-45 LV EF (2D Teicholz) 73 % 54-74 LV Diastolic Volume (4C MOD) 88 ml LV EF (4C MOD) 74 % LV Diastolic Volume (2C MOD) 87 ml LV EF (2C MOD) 62 % LV Diastolic Volume (BP MOD) 91 ml 46-106 LV Diastolic Volume Index (BP MOD) 52 ml/m2 29-61 LV Systolic Volume (BP MOD) 27 ml 14-42 LV Systolic Volume Index (BP MOD) 16 ml/m2 8-24 LV EF (BP MOD) 70 % 54-74 LV Diastolic Length (4C) 7.7 cm LV Systolic Length (4C) 6.0 cm LV Stroke Volume (4C MOD) 65 ml Atria Name Value Normal LA Dimensions LA Dimension (MM) 3.6 cm 2.7-3.8 LA Volume (4C A-L) 47 ml LA Volume (BP A-L) 44 ml RA Dimensions RA Area (4C) 13.0 cm2 <=18.0 Report Signatures
[2024-12-30] MEDS: ALPRAZolam (*CRX) 0.25 MG TABLET PO (00:13)
[2024-12-30] MEDS: ESCITALOPRAM OXALATE 10 MG TABLET PO ×2 (00:13→20:57)
[2024-12-30] MEDS: BELLADONNA ALK/PHENOB ELIX 10 ML, MAG HYDROX/ALUMINUM HYD/SIMETH 30 ML, LIDOCAINE 2% VI... PO (00:14)
[2024-12-30] MEDS: PANTOPRAZOLE SODIUM IV 40 MG VIAL IV PUSH (00:19)
[2024-12-30 00:47] LABS: D Dimer 0.44 ug/mL (<0.48)
[2024-12-30 05:18] LABS: Hematocrit 38.3 % (37.0-47.0); Hemoglobin 12.5 g/dL (12.0-15.0); Mean Corpuscular HGB Conc 32.6 g/dl (32-36); Mean Corpuscular Volume 92.1 fl (80-100); Mean Platelet Volume 10.1 fl (7.4-10.4); Platelet Count Result 298 k/mm3 (150-375); Red Blood Count 4.16 M/mm3 (4.2-5.4); Red Cell Distribution Width 13.4 % (11.5-14.5)
[2024-12-30 05:37] LABS: Anion Gap 7 mmol/L (4-12); Blood Urea Nitrogen 13 mg/dL (7-17); Calcium 9.4 mg/dL (8.4-10.2); Carbon Dioxide 30 mmol/L (22-30); Chloride 103 mmol/L (98-107); Estimated CRCL calculation 51 ml/min; Estimated Glomerular Filt Rate > 60; Glucose 85 mg/dL (65-110); Magnesium 2.3 mg/dL (1.6-2.3); Potassium 4.4 mmol/L (3.4-5.0); Sodium 140 mmol/L (137-145)
[2024-12-30 05:52] LABS: Cholesterol 231 mg/dL (0-200); HDL Direct 108 mg/dL; Triglycerides 116 mg/dL (<150)
[2024-12-30 06:03] LABS: LDL Cholesterol Direct 96 mg/dL
[2024-12-30 06:53] LABS: Free T4 Free Thyroxine Reflex 0.99 ng/dL (0.78-2.19)
[2024-12-30 07:43] LABS: Total Triiodothyronine (T3) 1.41 NG/ML (0.97-1.69)
[2024-12-30] MEDS: POTASSIUM CHLORIDE 10 MEQ ER TABLET PO (09:06)
[2024-12-30] MEDS: CYANOCOBALAMIN 1,000 MCG TABLET 1000 MCG PO (09:06)
[2024-12-30] MEDS: MULTIVITAMINS /C LUTEIN (CENTRUM SILVER) TABLET *BKC 1 TAB PO (09:06)
[2024-12-30] MEDS: CALCIUM/VITAMIN D 250 MG/3.125 MCG (125 I.U.) TABLET 2 TABLET PO (09:14)
[2024-12-30] MEDS: HYDROcodone/acetaminophen (*CRX) 5-325 MG TABLET 1 TAB PO ×3 (09:19→20:57)
--- NOTE | 2024-12-30 10:51 | PM.CNCAR ---
Assessment and Plan Assessment and plan (1) Chest pain: Code(s): R07.9 - Chest pain, unspecified Status: Acute Plan 1. Chest pain 2. Hypertension 3. Right lower extremity swelling PLAN: -Given right lower extremity swelling, will obtain venous Duplex to rule out DVT -Start Lisinopril 20mg once daily given hypertension. -Echocardiogram -Nuclear stress test 12/31. NPO at midnight. Recommendations and plan discussed with Hospitalist. History of Present Illness History of Present Illness Consult date/time: 12/30/24 10:51 Requesting physician: Erika Murdock PA-C Consult reason: chest pain Reason For Visit: Chest pain Narrative: We are consulted for chest pain. This is a 69 year old female with no prior cardiac history who presented with constant chest heaviness x 3 days, occasional radiation to neck/shoulder blades. No association with exertion. Feeling better now. Has had issues with swelling in her right lower extremity since her knee surgery. Noted to be hypertensive here, with SBP as high as the 190s. Reports her blood pressures at home are usually in the 140s systolics. Workup here shows negative troponins x 3. EKG without ischemic changes. TSH mildly elevated at 8.690, but normal T4, T3. CXR negative for acute findings. Review of Systems Review of Systems: All systems reviewed & are unremarkable except as noted in HPI and below (HPI) [facility] Past Medical History Medical History Seasonal allergic rhinitis Gastro-esophageal reflux disease without esophagitis Subclinical hyperthyroidism Major depressive disorder, single episode, unspecified Osteopenia Panic disorder [episodic paroxysmal anxiety] Surgical History Surgical History History of dilation and curettage History of appendectomy History of arthroscopy of right knee (09/2024) with partial meniscectomy History of tonsillectomy History of hysterectomy with oophorectomy History of fusion of cervical spine Family History Family History Father Leukemia Mother Family history of osteoporosis Heart disease Thyroid disorder Other Asthma Family history of arthritis Family history of hearing loss Family history of thyroid disease Social History Social History Social History: Surrogate medical decision maker: Pierre Lopez, spouse ([phone]). Code status: Full code. Smoking status: Never smoker Second hand tobacco smoke exposure: No Alcohol intake: never Substance use: never Substance use type: does not use Do You Feel Safe in your Home?: Yes Lack of Transportation: No Lack of Food: Never True Current Housing: I Have Housing Concerned About Future Housing: No Difficulty Paying Gas/Electric Bills: No Difficulty Paying for Meds: No Currently Unemployed: No Education: Decline to Answer Difficulty w/ Childcare or Family Care: No Living arrangements: with family Additional living arrangements comments: Lives with in [place]. 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. Spiritual care concerns: No Meds Home Medications and Allergies Home Medications ?Medication ?Instructions ?Recorded ?Confirmed ?Type ldcgsbpebsvt-ivcbiii-fxezr acid 1 tablet PO DAILY 01/31/24 12/29/24 History 400 mcg-lutein 250 mcg chewable tablet (Centrum Silver) rizatriptan 10 mg disintegrating 10 mg PO DAILY PRN migraine #10 05/16/24 12/29/24 Rx tablet (Maxalt-DE IONIZER OPERATOR) tabs alprazolam 0.25 mg tablet (Xanax) 0.25 mg PO TID PRN anxiety #60 tabs 09/30/24 12/29/24 Rx acetaminophen 500 mg tablet 500 mg PO Q6H PRN pain or fever 12/29/24 12/29/24 History calcium 250 mg (as 2 tablet PO DAILY 12/29/24 12/29/24 History citrate)-vitamin D3 5 mcg (200 unit) tablet cyanocobalamin (vitamin B-12) 1,000 mcg PO DAILY 12/29/24 12/29/24 History 1,000 mcg capsule escitalopram oxalate 10 mg tablet 10 mg PO HS 12/29/24 12/29/24 History glucosamine-chondroitin 250 mg-200 2 tablet PO ONCE 12/29/24 12/29/24 History mg tablet (Osteo Bi-Flex) ibuprofen 400 mg tablet (IBU) 400 mg PO Q6H PRN pain 12/29/24 12/29/24 History potassium 99 mg tablet 99 mg PO DAILY 12/29/24 12/29/24 History Allergies Allergy/AdvReac Type Severity Reaction Status Date / Time methylprednisolone AdvReac Intermediate Headache Verified 12/01/24 13:03 Vital Signs Vital Signs - 24 hr 12/29/24 16:38 12/29/24 16:44 12/29/24 17:50 Temperature 36.6 C Pulse Rate 99 102 H Respiratory Rate 16 18 Blood Pressure 194/90 H 184/94 H Pulse Oximetry 98 99 98 Oxygen Delivery Room Air Room Air 12/29/24 19:03 12/29/24 20:15 12/29/24 22:00 Temperature Pulse Rate 97 93 93 Respiratory Rate 18 18 Blood Pressure 171/72 H 163/89 H Pulse Oximetry 98 95 Oxygen Delivery 12/29/24 22:02 12/29/24 22:14 12/29/24 22:16 Temperature 36.9 C Pulse Rate 94 88 93 Respiratory Rate 18 Blood Pressure 172/94 H 151/75 H 168/82 H Pulse Oximetry 100 Oxygen Delivery 12/29/24 22:18 12/30/24 00:00 12/30/24 00:12 Temperature 36.4 C L Pulse Rate 107 H 81 86 Respiratory Rate 18 Blood Pressure 144/84 H 140/77 Pulse Oximetry 100 Oxygen Delivery 12/30/24 02:00 12/30/24 04:00 12/30/24 04:00 Temperature 36.5 C Pulse Rate 71 77 74 Respiratory Rate 16 Blood Pressure 148/78 H Pulse Oximetry 100 Oxygen Delivery 12/30/24 06:00 12/30/24 07:56 Temperature 36.4 C Pulse Rate 76 81 Respiratory Rate 14 Blood Pressure 145/66 H Pulse Oximetry 100 Oxygen Delivery Exam Const: General: comfortable and no acute distress HENMT: Mouth: Yes moist mucous membranes Eyes: General: appearance normal, both eyes and all related structures Sclera: sclerae normal Chest: Other: No reproducible chest wall tenderness Resp: Effort & Inspection: normal respiratory effort Cardio: Rate: regular rate Rhythm: regular rhythm Heart sounds: no murmurs Skin: General skin exam: normal color Neuro: Speech: normal speech Psych: Mental Status: mental status grossly normal Affect: normal affect Results Labs and Meds 12/30/24 04:29 12/30/24 04:29 Lab results: Cardiac Enzymes 12/29/24 12/29/24 12/29/24 Range/Units 16:58 19:34 22:48 AST 24 (14-36) U/L Troponin I < 0.012 < 0.012 < 0.012 (0.000-0.034) ng/mL Coagulation 12/29/24 Range/Units 16:58 PT 13.0 (11.1-14.7) Seconds APTT 30.8 (22.3-36.8) Seconds Lipids 12/30/24 Range/Units 04:29 Triglycerides 116 (<150) mg/dL Cholesterol 231 H (0-200) mg/dL CBC 12/29/24 12/30/24 Range/Units 16:58 04:29 WBC 9.9 9.0 (4.5-10.0) K/mm3 RBC 4.59 4.16 L (4.2-5.4) M/mm3 Hgb 14.0 12.5 (12.0-15.0) g/dL Hct 42.2 38.3 (37.0-47.0) % Plt Count 300 298 (150-375) k/mm3 Lymph # (Auto) 2.64 (0.9-3.2) K/mm3 Potter # (Auto) 0.9 H (0.1-0.6) K/mm3 Eos # (Auto) 0.1 (0-0.3) K/mm3 Baso # (Auto) 0.0 (0.0-0.1) K/mm3 Comprehensive Metabolic Panel 12/29/24 12/30/24 Range/Units 16:58 04:29 Sodium 140 140 (137-145) mmol/L Potassium 3.8 4.4 (3.4-5.0) mmol/L Chloride 103 103 (98-107) mmol/L Carbon Dioxide 27 30 (22-30) mmol/L BUN 13 13 (7-17) mg/dL Creatinine 0.66 L 0.73 (0.7-1.0) mg/dL Glucose 109 85 (65-110) mg/dL Calcium 10.1 9.4 (8.4-10.2) mg/dL AST 24 (14-36) U/L ALT 20 (6-35) U/L Alkaline Phosphatase 92 (38-126) U/L Total Protein 8.0 (6.3-8.2) g/dL Albumin 4.5 (3.5-5.1) g/dL Intake and Output 12/29/24 12/30/24 12/30/24 23:59 07:59 15:59 Intake Total 550 240 Balance 550 240 Intake: Oral 550 240 Other: # Unmeasured Voids 1 Patient Weight 12/30/24 23:59 Weight 67.7 kg
--- NOTE | 2024-12-30 11:02 | PM.IMPN ---
Progress Note: A&P Assessment and Plan (1) Chest pain: Code(s): R07.9 - Chest pain, unspecified Status: Acute Assessment and Plan: EKG showed sinus tach with a rate of 100, QTC 440 troponin negative x2 cardiology consulted NPO after midnight Plan for Lexiscan stress test in the morning with echocardiogram continue pain control (2) Elevated blood pressure reading: Code(s): R03.0 - Elevated blood-pressure reading, without diagnosis of hypertension Status: Acute Assessment and Plan: blood pressures ranging 140/77 to 171/72 continue lisinopril (3) Anxiety: Code(s): F41.9 - Anxiety disorder, unspecified Status: Acute Assessment and Plan: continue Xanax (4) Gastroesophageal reflux disease: Code(s): K21.9 - Gastro-esophageal reflux disease without esophagitis Status: Acute Assessment and Plan: continue Protonix Time Spent With Patient Time with patient: Greater than 35 minutes Subjective Date/time seen: 12/30/24 11:02 Interval history: Interval history: This is a 69-year-old female with a significant past medical history of hypothyroidism, GERD, depression, anxiety who presented to the emergency room with complaints of chest pain. Workup in the hospital included a chest x-ray which was negative. Initial labs were unremarkable. Troponin was negative x2, cholesterol 231, TSH 8.690, free T4 0.99, T3 1.41. EKG shown sinus tachycardia with a rate of 100, QTC 440. Patient was given nitroglycerin, aspirin, GI cocktail, and Protonix while in the ED. cardiology was consulted. Subjective: Patient reports that she had pressure in her chest mid sternum while at rest and she felt lightheaded/ dizzy. she denies any recent illness, fever, chills, nausea, vomiting, diarrhea, abdominal pain, shortness a breath. labs and imaging reviewed. Review of Systems Review of Systems: 12 systems were reviewed and are negative except for as per HPI. All systems reviewed & are unremarkable except as noted in HPI and below Exam Narrative: General: In no acute distress, well nourished Head: atraumatic, no encephalopathy Eyes: PERRLA, sclera clear ENT: moist mucous membranes, nasal passages clear Neck: supple, no JVD, no adenopathy, trachea midline Cardiac: Normal S1 and S2. No murmur, gallops or friction rubs, peripheral pulses intact. Respiratory: Lungs clear to auscultation, no adventitious lung sounds, currently on room air Gastrointestinal: soft, non-distended, non-tender, normoactive bowel sounds. : voiding without difficulty. Extremities: moves all extremities well, no edema Skin: clean, dry, intact. No wounds or lesions. Neuro: Alert and oriented x4, cranial nerves intact, no neuro deficits. Psych: normal mood, normal affect, interactive Objective Data Vital Signs Vital Signs: Vital Signs - 24 hr 12/29/24 16:38 12/29/24 16:44 12/29/24 17:50 Temperature 97.9 F Pulse Rate 99 102 H Respiratory Rate 16 18 Blood Pressure 194/90 H 184/94 H Pulse Oximetry 98 99 98 Oxygen Delivery Room Air Room Air 12/29/24 19:03 12/29/24 20:15 12/29/24 22:00 Temperature Pulse Rate 97 93 93 Respiratory Rate 18 18 Blood Pressure 171/72 H 163/89 H Pulse Oximetry 98 95 Oxygen Delivery 12/29/24 22:02 12/29/24 22:14 12/29/24 22:16 Temperature 98.5 F Pulse Rate 94 88 93 Respiratory Rate 18 Blood Pressure 172/94 H 151/75 H 168/82 H Pulse Oximetry 100 Oxygen Delivery 12/29/24 22:18 12/30/24 00:00 12/30/24 00:12 Temperature 97.5 F L Pulse Rate 107 H 81 86 Respiratory Rate 18 Blood Pressure 144/84 H 140/77 Pulse Oximetry 100 Oxygen Delivery 12/30/24 02:00 12/30/24 04:00 12/30/24 04:00 Temperature 97.7 F Pulse Rate 71 77 74 Respiratory Rate 16 Blood Pressure 148/78 H Pulse Oximetry 100 Oxygen Delivery 12/30/24 06:00 12/30/24 07:56 Temperature 97.6 F Pulse Rate 76 81 Respiratory Rate 14 Blood Pressure 145/66 H Pulse Oximetry 100 Oxygen Delivery Intake/Output Intake/Output: Intake & Output 12/27/24 12/28/24 12/29/24 12/30/24 23:59 23:59 23:59 23:59 Intake Total 790 Balance 790 Meds/Results Medications: Active Medications Generic Name Dose Route Start Last Admin Trade Name Freq PRN Reason Stop Dose Admin Acetaminophen 650 mg 12/29/24 18:35 Acetaminophen 325 Mg Tablet PO Q4H PRN Mild Pain (1-3) or Fever Hydrocodone Bitart/Acetaminophen 1 tab 12/29/24 18:35 12/30/24 09:19 Hydrocodone/Acetaminophen (*Crx) 5-325 Mg Tablet PO 1 tab Q4H PRN Administration Pain Rated 4-6 Alprazolam 0.25 mg 12/29/24 23:36 12/30/24 00:13 Alprazolam (*Crx) 0.25 Mg Tablet PO 0.25 mg TID PRN Administration anxiety Calcium Carbonate 2 tablet 12/30/24 09:00 12/30/24 09:14 Calcium/Vitamin D 250 Mg/3.125 Mcg (125 I.U.) Tablet PO 2 tablet QAM [facility] Administration Cyanocobalamin 1,000 mcg 12/30/24 09:00 12/30/24 09:06 Cyanocobalamin 1,000 Mcg Tablet PO 1,000 mcg DAILY [facility] Administration Escitalopram Oxalate 10 mg 12/29/24 23:55 12/30/24 00:13 Escitalopram Oxalate 10 Mg Tablet PO 10 mg HS [facility] Administration Lisinopril 20 mg 12/30/24 10:50 Lisinopril 20 Mg Tablet PO QAM [facility] Morphine Sulfate 2 mg 12/29/24 18:35 Morphine Sulfate (*Crx) 2 Mg/Ml Inj IV PUSH Q2H PRN Pain Rated 7-10 Multivitamins/Minerals 1 tab 12/30/24 09:00 12/30/24 09:06 Multivitamins /C Lutein (Centrum Silver) Tablet *Bkc PO 1 tab QAM [facility] Administration Nitroglycerin 0.4 mg 12/29/24 23:37 Nitroglycerin Sl 0.4 Mg Tablet SUBLINGUAL Q5MIN PRN Chest Pain Ondansetron HCl 4 mg 12/29/24 18:35 Ondansetron Inj 4 Mg/2 Ml Vial IV PUSH Q4H PRN Nausea Perflutren Lipid Microsphere 0 ml 12/30/24 10:51 Perflutren Lipid Microspheres 1.5 Ml Vial Diluted To 10 Ml Total Volume IV PUSH 01/02/25 10:51 ONCE PRN adequate visualization Protocol Potassium Chloride 10 meq 12/30/24 08:00 12/30/24 09:06 Potassium Chloride 10 Meq Er Tablet PO 10 meq DAILY@0800 [facility] Administration Radiology Results: ITS Impressions Chest X-Ray 12/29/24 17:21 IMPRESSION: No acute cardiopulmonary process. Labs Labs: Laboratory Results - last 24 hr 12/29/24 12/29/24 12/29/24 16:58 19:34 22:48 WBC 9.9 RBC 4.59 Hgb 14.0 Hct 42.2 MCV 91.9 MCH 30.5 MCHC 33.2 RDW 13.2 Plt Count 300 MPV 9.5 Immature Gran % (Auto) 0.2 Neut % (Auto) 63.1 Lymph % (Auto) 26.7 [place] % (Auto) 8.8 H Eos % (Auto) 1.0 Baso % (Auto) 0.2 Lymph # (Auto) 2.64 [place] # (Auto) 0.9 H Eos # (Auto) 0.1 Baso # (Auto) 0.0 Abs Immat Gran (auto) 0.02 Absolute Neuts (auto) 6.2 Absolute Nucleated RBC 0.000 Nucleated RBC % 0.0 PT 13.0 INR 1.0 APTT 30.8 D-Dimer 0.44 Sodium 140 Potassium 3.8 Chloride 103 Carbon Dioxide 27 Anion Gap 10 BUN 13 Creatinine 0.66 L Estim Creat Clear Calc 62 Estimated GFR > 60 Glucose 109 Calcium 10.1 Magnesium Total Bilirubin 0.5 AST 24 ALT 20 Alkaline Phosphatase 92 Troponin I < 0.012 < 0.012 < 0.012 Total Protein 8.0 Albumin 4.5 Triglycerides Cholesterol LDL Cholesterol Direct HDL Direct Lipase 162 TSH (Reflex) Free T4 Total T3 12/30/24 04:29 WBC 9.0 RBC 4.16 L Hgb 12.5 Hct 38.3 MCV 92.1 MCH 30.0 MCHC 32.6 RDW 13.4 Plt Count 298 MPV 10.1 Immature Gran % (Auto) Neut % (Auto) Lymph % (Auto) [place] % (Auto) Eos % (Auto) Baso % (Auto) Lymph # (Auto) [place] # (Auto) Eos # (Auto) Baso # (Auto) Abs Immat Gran (auto) Absolute Neuts (auto) Absolute Nucleated RBC Nucleated RBC % PT INR APTT D-Dimer Sodium 140 Potassium 4.4 Chloride 103 Carbon Dioxide 30 Anion Gap 7 BUN 13 Creatinine 0.73 Estim Creat Clear Calc 51 Estimated GFR > 60 Glucose 85 Calcium 9.4 Magnesium 2.3 Total Bilirubin AST ALT Alkaline Phosphatase Troponin I Total Protein Albumin Triglycerides 116 Cholesterol 231 H LDL Cholesterol Direct 96 HDL Direct 108 Lipase TSH (Reflex) 8.690 H Free T4 0.99 Total T3 1.41 Quality VTE Prophylaxis VTE prophylaxis: pharmacologic ordered
[2024-12-30] MEDS: lisinopriL 20 MG TABLET PO (11:29)
[2024-12-31] VITALS (12 sets, daily range): BP systolic 115–145; BP diastolic 60–79; PULSE 72–94; RESP 16–18; TEMP 36.4–36.8; O2SAT 96–100
[2024-12-31] MEDS: ONDANSETRON INJ 4 MG/2 ML VIAL IV PUSH (05:35)
[2024-12-31] MEDS: ALPRAZolam (*CRX) 0.25 MG TABLET PO ×2 (05:35→09:11)
--- NOTE | 2024-12-31 07:36 | PM.IMPN ---
Progress Note: A&P Assessment and Plan (1) Chest pain: Code(s): R07.9 - Chest pain, unspecified Status: Acute Assessment and Plan: EKG showed sinus tach with a rate of 100, QTC 440 troponin negative x2 cardiology consulted NPO after midnight Plan for Lexiscan stress test in the morning with echocardiogram continue pain control (2) Elevated blood pressure reading: Code(s): R03.0 - Elevated blood-pressure reading, without diagnosis of hypertension Status: Acute Assessment and Plan: blood pressures ranging 140/77 to 171/72 continue lisinopril (3) Anxiety: Code(s): F41.9 - Anxiety disorder, unspecified Status: Acute Assessment and Plan: continue Xanax (4) Gastroesophageal reflux disease: Code(s): K21.9 - Gastro-esophageal reflux disease without esophagitis Status: Acute Assessment and Plan: continue Protonix Subjective Date/time seen: 12/31/24 07:36 Interval history: Interval history: This is a 69-year-old female with a significant past medical history of hypothyroidism, GERD, depression, anxiety who presented to the emergency room with complaints of chest pain. Workup in the hospital included a chest x-ray which was negative. Initial labs were unremarkable. Troponin was negative x2, cholesterol 231, TSH 8.690, free T4 0.99, T3 1.41. EKG shown sinus tachycardia with a rate of 100, QTC 440. Patient was given nitroglycerin, aspirin, GI cocktail, and Protonix while in the ED. cardiology was consulted. Subjective: Patient reports that she had pressure in her chest mid sternum while at rest and she felt lightheaded/ dizzy. she denies any recent illness, fever, chills, nausea, vomiting, diarrhea, abdominal pain, shortness a breath. labs and imaging reviewed. Review of Systems Review of Systems: 12 systems were reviewed and are negative except for as per HPI. All systems reviewed & are unremarkable except as noted in HPI and below Exam Narrative: General: In no acute distress, well nourished Head: atraumatic, no encephalopathy Eyes: PERRLA, sclera clear ENT: moist mucous membranes, nasal passages clear Neck: supple, no JVD, no adenopathy, trachea midline Cardiac: Normal S1 and S2. No murmur, gallops or friction rubs, peripheral pulses intact. Respiratory: Lungs clear to auscultation, no adventitious lung sounds, currently on room air Gastrointestinal: soft, non-distended, non-tender, normoactive bowel sounds. : voiding without difficulty. Extremities: moves all extremities well, no edema Skin: clean, dry, intact. No wounds or lesions. Neuro: Alert and oriented x4, cranial nerves intact, no neuro deficits. Psych: normal mood, normal affect, interactive Objective Data Vital Signs Vital Signs: Vital Signs - 24 hr 12/30/24 07:56 12/30/24 08:00 12/30/24 08:00 Temperature 97.6 F Pulse Rate 81 77 80 Respiratory Rate 14 16 Blood Pressure 145/66 H Pulse Oximetry 100 99 Oxygen Delivery Room Air 12/30/24 11:55 12/30/24 12:00 12/30/24 12:00 Temperature 97.9 F Pulse Rate 77 77 79 Respiratory Rate 16 16 Blood Pressure 154/66 H Pulse Oximetry 99 99 Oxygen Delivery Room Air 12/30/24 14:00 12/30/24 15:13 12/30/24 16:00 Temperature 97.9 F Pulse Rate 69 85 85 Respiratory Rate 12 12 Blood Pressure 136/69 Pulse Oximetry 98 98 Oxygen Delivery Room Air 12/30/24 16:00 12/30/24 20:00 12/30/24 20:00 Temperature 97.9 F Pulse Rate 81 83 75 Respiratory Rate 18 Blood Pressure 124/70 Pulse Oximetry 100 Oxygen Delivery 12/30/24 22:00 12/30/24 23:49 12/31/24 00:00 Temperature 98.2 F Pulse Rate 79 67 78 Respiratory Rate 18 Blood Pressure 138/74 Pulse Oximetry 100 Oxygen Delivery 12/31/24 02:00 12/31/24 04:00 12/31/24 04:27 Temperature 98 F Pulse Rate 79 78 82 Respiratory Rate 18 Blood Pressure 124/67 Pulse Oximetry 100 Oxygen Delivery 12/31/24 06:00 Temperature Pulse Rate 76 Respiratory Rate Blood Pressure Pulse Oximetry Oxygen Delivery Intake/Output Intake/Output: Intake & Output 12/28/24 12/29/24 12/30/24 12/31/24 23:59 23:59 23:59 23:59 Intake Total 1820 500 Output Total 800 Balance 1820 -300 Meds/Results Medications: Active Medications Generic Name Dose Route Start Last Admin Trade Name Freq PRN Reason Stop Dose Admin Acetaminophen 650 mg 12/29/24 18:35 Acetaminophen 325 Mg Tablet PO Q4H PRN Mild Pain (1-3) or Fever Hydrocodone Bitart/Acetaminophen 1 tab 12/29/24 18:35 12/30/24 20:57 Hydrocodone/Acetaminophen (*Crx) 5-325 Mg Tablet PO 1 tab Q4H PRN Administration Pain Rated 4-6 Alprazolam 0.25 mg 12/29/24 23:36 12/31/24 05:35 Alprazolam (*Crx) 0.25 Mg Tablet PO 0.25 mg TID PRN Administration anxiety Calcium Carbonate 2 tablet 12/30/24 09:00 12/30/24 09:14 Calcium/Vitamin D 250 Mg/3.125 Mcg (125 I.U.) Tablet PO 2 tablet QAM [facility] Administration Cyanocobalamin 1,000 mcg 12/30/24 09:00 12/30/24 09:06 Cyanocobalamin 1,000 Mcg Tablet PO 1,000 mcg DAILY [facility] Administration Escitalopram Oxalate 10 mg 12/29/24 23:55 12/30/24 20:57 Escitalopram Oxalate 10 Mg Tablet PO 10 mg HS [facility] Administration Lisinopril 20 mg 12/30/24 10:50 12/30/24 11:29 Lisinopril 20 Mg Tablet PO 20 mg QAM [facility] Administration Morphine Sulfate 2 mg 12/29/24 18:35 Morphine Sulfate (*Crx) 2 Mg/Ml Inj IV PUSH Q2H PRN Pain Rated 7-10 Multivitamins/Minerals 1 tab 12/30/24 09:00 12/30/24 09:06 Multivitamins /C Lutein (Centrum Silver) Tablet *Bkc PO 1 tab QAM [facility] Administration Nitroglycerin 0.4 mg 12/29/24 23:37 Nitroglycerin Sl 0.4 Mg Tablet SUBLINGUAL Q5MIN PRN Chest Pain Ondansetron HCl 4 mg 12/29/24 18:35 12/31/24 05:35 Ondansetron Inj 4 Mg/2 Ml Vial IV PUSH 4 mg Q4H PRN Administration Nausea Pantoprazole Sodium 40 mg 12/31/24 09:00 Pantoprazole 40 Mg Tablet PO QAM [facility] Perflutren Lipid Microsphere 0 ml 12/30/24 10:51 Perflutren Lipid Microspheres 1.5 Ml Vial Diluted To 10 Ml Total Volume IV PUSH 01/02/25 10:51 ONCE PRN adequate visualization Protocol Potassium Chloride 10 meq 12/30/24 08:00 12/30/24 09:06 Potassium Chloride 10 Meq Er Tablet PO 10 meq DAILY@0800 [facility] Administration Radiology Results: ITS Impressions Chest X-Ray 12/29/24 17:21 IMPRESSION: No acute cardiopulmonary process. Venous Doppler Study 12/30/24 11:53 IMPRESSION: 1. No deep venous thrombosis. Labs Labs: Laboratory Results - last 24 hr 12/30/24 04:29 Total T3 1.41 Quality VTE Prophylaxis VTE prophylaxis: pharmacologic ordered
[2024-12-31 09:44] LABS: Basophils Percent Auto 0.1 % (0.2-1.2); Eosinophils Absolute Auto 0.1 K/mm3 (0-0.3); Eosinophils Percent Auto 0.7 % (0-4.4); Hematocrit 41.3 % (37.0-47.0); Hemoglobin 13.4 g/dL (12.0-15.0); Immature Granulocyte Absolute 0.03 K/mm3 (0.00-0.031); Immature Granulocyte Percent A 0.4 % (0-0.5); Lymphocytes Absolute Auto 1.62 K/mm3 (0.9-3.2); Lymphocytes Percent Auto 19.2 % (18.3-44.2); Mean Corpuscular HGB Conc 32.4 g/dl (32-36); Mean Corpuscular Hemoglobin 30.5 pg (26-34); Mean Corpuscular Volume 94.1 fl (80-100); Mean Platelet Volume 10.2 fl (7.4-10.4); Monocytes Absolute Auto 0.5 K/mm3 (0.1-0.6); Monocytes Percent Auto 5.8 % (2.6-8.5); Neutrophils Absolute Auto 6.2 K/mm3 (1.3-6.7); Neutrophils Percent Auto 73.8 % (45.5-73.1); Platelet Count Result 336 k/mm3 (150-375); Red Blood Count 4.39 M/mm3 (4.2-5.4); Red Cell Distribution Width 13.5 % (11.5-14.5); White Blood Count 8.4 K/mm3 (4.5-10.0)
[2024-12-31 10:01] LABS: Alanine Aminotransferase 19 U/L (6-35); Albumin Level 4.3 g/dL (3.5-5.1); Alkaline Phosphatase 83 U/L (38-126); Anion Gap 10 mmol/L (4-12); Aspartate Amino Transferase 26 U/L (14-36); Bilirubin,Total 0.5 mg/dL (0.2-1.3); Blood Urea Nitrogen 11 mg/dL (7-17); Calcium 9.7 mg/dL (8.4-10.2); Carbon Dioxide 28 mmol/L (22-30); Chloride 105 mmol/L (98-107); Estimated CRCL calculation 57 ml/min; Estimated Glomerular Filt Rate > 60; Glucose 99 mg/dL (65-110); Magnesium 2.3 mg/dL (1.6-2.3); Potassium 4.2 mmol/L (3.4-5.0); Sodium 143 mmol/L (137-145)
--- NOTE | 2024-12-31 10:51 | EST_ITS ---
Patient Info Name: Radha Lopez Age: 69 years : 1955 Gender: Female Ht: 63 in Wt: 149 lbs BSA: 1.75 m2 HR: 79 bpm BP: 150 / 77 mmHg Exam Date: 12/31/2024 9:27 AM Exam Location: Echo Lab Patient Status: Inpatient Admit Date: 12/30/2024 Staff Ordering Physician: Galo Taveras MD Attending Provider: Thomas Guerin MD Exercise Technologist: Andre TORRES RRT Exercise Physician: Galo Taveras MD Exam Type: CA stress john w NM Study Info Indications R07.9 - Chest pain, unspecified A regadenoson stress test was performed. Summary 1. No abnormal ST/T wave changes diagnostic of ischemia with Lexiscan. 2. Please correlate with nuclear medicine images, reported separately. 3. Stress test supervised and interpreted by Galo Taveras MD. Protocol: Lexiscan Stress ECG Details Stage: REST Duration (min): 0 min : 13 sec HR (bpm): 81 SBP (mmHg): --- DBP (mmHg): --- Stage: REST Duration (min): 6 min : 54 sec HR (bpm): 83 SBP (mmHg): 150 DBP (mmHg): 77 Stage: STAGE 1 Duration (min): 0 min : 59 sec HR (bpm): 113 SBP (mmHg): 155 DBP (mmHg): 85 Stage: RECOVERY Duration (min): 0 min : 43 sec HR (bpm): 115 SBP (mmHg): 155 DBP (mmHg): 85 Rest HR: 83 bpm Peak HR: 114 bpm Rest Sys BP: 150 mmHg Peak Sys BP: 155 mmHg Max Pred HR: 149 bpm % Max Pred HR: 77 % Target HR: 127 bpm Max RPP: 17,670 bpm*mmHg Total Time: 1 min : 0 sec Rest Lester BP: 77 mmHg Peak Lester BP: 85 mmHg Total Dose: 0.4 mg Resting ECG Sinus rhythm. Stress ECG Sinus tachycardia. No abnormal ST/T wave changes diagnostic of ischemia with Lexiscan. Arrhythmias None. Report Signatures
--- NOTE | 2024-12-31 12:11 | PM.PNCARD ---
Progress Note: A&P Assessment and Plan (1) Chest pain: Code(s): R07.9 - Chest pain, unspecified Status: Acute Plan 1. Chest pain 2. Hypertension PLAN: -Started Lisinopril 20mg once daily given hypertension. -Echocardiogram without significant abnormality, normal LVEF. -Lexiscan stress test negative for ischemia or infarct, no wall motion abnormality, normal LVEF. Given normal stress test, okay to discharge patient home from my standpoint. Will arrange follow up in my office. Subjective Date/time seen: 12/31/24 12:11 Interval history: Reason for visit: Chest pain HPI: We are consulted for chest pain. This is a 69 year old female with no prior cardiac history who presented with constant chest heaviness x 3 days, occasional radiation to neck/shoulder blades. No association with exertion. Feeling better now. Has had issues with swelling in her right lower extremity since her knee surgery. Noted to be hypertensive here, with SBP as high as the 190s. Reports her blood pressures at home are usually in the 140s systolics. Workup here shows negative troponins x 3. EKG without ischemic changes. TSH mildly elevated at 8.690, but normal T4, T3. CXR negative for acute findings. Date of service 12/31: Lexiscan today. Feeling okay, had poor sleep overnight, has back pain. Otherwise doing well. Review of Systems Cardiovascular: Cardiovascular: Reports as per HPI Exam Const: General: comfortable and no acute distress HENMT: Mouth: Yes moist mucous membranes Eyes: General: appearance normal, both eyes and all related structures Sclera: sclerae normal Resp: Effort & Inspection: normal respiratory effort Skin: General skin exam: normal color Neuro: Speech: normal speech Psych: Mental Status: mental status grossly normal Affect: normal affect Objective Data Vital Signs Vital Signs: Vital Signs - 24 hr 12/30/24 14:00 12/30/24 15:13 12/30/24 16:00 Temperature 36.6 C Pulse Rate 69 85 85 Respiratory Rate 12 12 Blood Pressure 136/69 Pulse Oximetry 98 98 Oxygen Delivery Room Air 12/30/24 16:00 12/30/24 20:00 12/30/24 20:00 Temperature 36.6 C Pulse Rate 81 83 75 Respiratory Rate 18 Blood Pressure 124/70 Pulse Oximetry 100 Oxygen Delivery 12/30/24 22:00 12/30/24 23:49 12/31/24 00:00 Temperature 36.8 C Pulse Rate 79 67 78 Respiratory Rate 18 Blood Pressure 138/74 Pulse Oximetry 100 Oxygen Delivery 12/31/24 02:00 12/31/24 04:00 12/31/24 04:27 Temperature 36.6 C Pulse Rate 79 78 82 Respiratory Rate 18 Blood Pressure 124/67 Pulse Oximetry 100 Oxygen Delivery 12/31/24 06:00 12/31/24 07:42 12/31/24 08:00 Temperature 36.8 C Pulse Rate 76 85 Respiratory Rate 16 Blood Pressure 115/60 Pulse Oximetry 99 100 Oxygen Delivery Room Air 12/31/24 08:00 12/31/24 10:00 12/31/24 10:46 Temperature Pulse Rate 88 81 Respiratory Rate Blood Pressure Pulse Oximetry 96 Oxygen Delivery Room Air 12/31/24 11:26 Temperature 36.4 C Pulse Rate 72 Respiratory Rate 16 Blood Pressure 145/79 H Pulse Oximetry 100 Oxygen Delivery Intake/Output Intake/Output: Intake & Output 12/28/24 12/29/24 12/30/24 12/31/24 23:59 23:59 23:59 23:59 Intake Total 1820 737 Output Total 800 Balance 1820 -63 Meds/Results Medications: Active Medications Generic Name Dose Route Start Last Admin Trade Name Freq PRN Reason Stop Dose Admin Acetaminophen 650 mg 12/29/24 18:35 Acetaminophen 325 Mg Tablet PO Q4H PRN Mild Pain (1-3) or Fever Hydrocodone Bitart/Acetaminophen 1 tab 12/29/24 18:35 12/30/24 20:57 Hydrocodone/Acetaminophen (*Crx) 5-325 Mg Tablet PO 1 tab Q4H PRN Administration Pain Rated 4-6 Alprazolam 0.25 mg 12/29/24 23:36 12/31/24 09:11 Alprazolam (*Crx) 0.25 Mg Tablet PO 0.25 mg TID PRN Administration anxiety Calcium Carbonate 2 tablet 12/30/24 09:00 12/30/24 09:14 Calcium/Vitamin D 250 Mg/3.125 Mcg (125 I.U.) Tablet PO 2 tablet QAM [facility] Administration Cyanocobalamin 1,000 mcg 12/30/24 09:00 12/30/24 09:06 Cyanocobalamin 1,000 Mcg Tablet PO 1,000 mcg DAILY [facility] Administration Escitalopram Oxalate 10 mg 12/29/24 23:55 12/30/24 20:57 Escitalopram Oxalate 10 Mg Tablet PO 10 mg HS [facility] Administration Lisinopril 20 mg 12/30/24 10:50 12/30/24 11:29 Lisinopril 20 Mg Tablet PO 20 mg QAM [facility] Administration Morphine Sulfate 2 mg 12/29/24 18:35 Morphine Sulfate (*Crx) 2 Mg/Ml Inj IV PUSH Q2H PRN Pain Rated 7-10 Multivitamins/Minerals 1 tab 12/30/24 09:00 12/30/24 09:06 Multivitamins /C Lutein (Centrum Silver) Tablet *Bkc PO 1 tab QAM [facility] Administration Nitroglycerin 0.4 mg 12/29/24 23:37 Nitroglycerin Sl 0.4 Mg Tablet SUBLINGUAL Q5MIN PRN Chest Pain Ondansetron HCl 4 mg 12/29/24 18:35 12/31/24 05:35 Ondansetron Inj 4 Mg/2 Ml Vial IV PUSH 4 mg Q4H PRN Administration Nausea Pantoprazole Sodium 40 mg 12/31/24 09:00 Pantoprazole 40 Mg Tablet PO QAM [facility] Perflutren Lipid Microsphere 0 ml 12/30/24 10:51 Perflutren Lipid Microspheres 1.5 Ml Vial Diluted To 10 Ml Total Volume IV PUSH 01/02/25 10:51 ONCE PRN adequate visualization Protocol Potassium Chloride 10 meq 12/30/24 08:00 12/30/24 09:06 Potassium Chloride 10 Meq Er Tablet PO 10 meq DAILY@0800 [facility] Administration Radiology Results: ITS Impressions Chest X-Ray 12/29/24 17:21 IMPRESSION: No acute cardiopulmonary process. Venous Doppler Study 12/30/24 11:53 IMPRESSION: 1. No deep venous thrombosis. Lexiscan Stress Test 12/31/24 10:30 IMPRESSION: 1. No definite ischemia or infarct. 2. Normal left ventricular ejection fraction measuring 70%. Labs Labs: Laboratory Results - last 24 hr 12/31/24 09:05 WBC 8.4 RBC 4.39 Hgb 13.4 Hct 41.3 MCV 94.1 MCH 30.5 MCHC 32.4 RDW 13.5 Plt Count 336 MPV 10.2 Immature Gran % (Auto) 0.4 Neut % (Auto) 73.8 H Lymph % (Auto) 19.2 [place] % (Auto) 5.8 Eos % (Auto) 0.7 Baso % (Auto) 0.1 L Lymph # (Auto) 1.62 [place] # (Auto) 0.5 Eos # (Auto) 0.1 Baso # (Auto) 0.0 Abs Immat Gran (auto) 0.03 Absolute Neuts (auto) 6.2 Absolute Nucleated RBC 0.000 Nucleated RBC % 0.0 Sodium 143 Potassium 4.2 Chloride 105 Carbon Dioxide 28 Anion Gap 10 BUN 11 Creatinine 0.64 L Estim Creat Clear Calc 57 Estimated GFR > 60 Glucose 99 Calcium 9.7 Magnesium 2.3 Total Bilirubin 0.5 AST 26 ALT 19 Alkaline Phosphatase 83 Total Protein 7.0 Albumin 4.3
[2024-12-31] MEDS: HYDROcodone/acetaminophen (*CRX) 5-325 MG TABLET 1 TAB PO (12:14)
[2024-12-31] MEDS: lisinopriL 20 MG TABLET PO (12:14)
[2024-12-31] MEDS: CYANOCOBALAMIN 1,000 MCG TABLET 1000 MCG PO (12:15)
[2024-12-31] MEDS: POTASSIUM CHLORIDE 10 MEQ ER TABLET PO (12:15)
[2024-12-31] MEDS: CALCIUM/VITAMIN D 250 MG/3.125 MCG (125 I.U.) TABLET 2 TABLET PO (12:15)
[2024-12-31] MEDS: MULTIVITAMINS /C LUTEIN (CENTRUM SILVER) TABLET *BKC 1 TAB PO (12:15)
[2024-12-31] MEDS: PANTOPRAZOLE 40 MG TABLET PO (12:16)
--- NOTE | 2024-12-31 14:35 | P.DS_ITS ---
DS: Admitting Diagnosis Discharge Date 12/31/24 Admitting Diagnosis Chest pain Hypertension Anxiety GERD DS: Discharge Diagnosis Discharge Diagnosis (1) Chest pain: Code(s): R07.9 - Chest pain, unspecified Status: Acute (2) Elevated blood pressure reading: Code(s): R03.0 - Elevated blood-pressure reading, without diagnosis of hypertension Status: Acute (3) Anxiety: Code(s): F41.9 - Anxiety disorder, unspecified Status: Acute (4) Gastroesophageal reflux disease: Code(s): K21.9 - Gastro-esophageal reflux disease without esophagitis Status: Acute DS: Summary Hospital Course Reason for hospitalization: Chest pain Hypertension Anxiety GERD Hospital Course: This is a 69-year-old female with a significant past medical history of hypothyroidism, GERD, depression, anxiety who presented to the emergency room with complaints of chest pain. Workup in the hospital included a chest x-ray which was negative. Initial labs were unremarkable. Troponin was negative x2, cholesterol 231, TSH 8.690, free T4 0.99, T3 1.41. EKG shown sinus tachycardia with a rate of 100, QTC 440. Patient was given nitroglycerin, aspirin, GI cocktail, and Protonix while in the ED. cardiology was consulted. Patient was taken for a Lexiscan today which was negative. Echocardiogram was within normal limits. She was started on lisinopril for her hypertension per Cardiology recommendation. She will continue this medication on an outpatient basis. She will need to follow up with Cardiology in 2 weeks. She will also need to follow up with her primary in 1 week. Vital signs are stable, she is afebrile, she is currently on room air. She is stable for discharge at this time. Final diagnosis: Angina, uncontrolled hypertension, GERD Status at Discharge Cognitive/behavioral status at discharge: Alert oriented x4 Functional status at discharge: independent ambulation Overall status at discharge: patient is progressing back to baseline Time Spent with Patient Time attestation: Total time spent providing and/or coordinating discharge services: Time spent: Greater than 30 minutes Exam Narrative: General: In no acute distress, well nourished Cardiac: Normal S1 and S2. No murmur, gallops or friction rubs, peripheral pulses intact. Respiratory: Lungs clear to auscultation, no adventitious lung sounds, currently on room air Gastrointestinal: soft, non-distended, non-tender, normoactive bowel sounds. : voiding without difficulty. Neuro: Alert and oriented x4 DS: Data Data Completed and Pending Completed studies during hospitalization: Chest x-ray Venous Doppler study Echocardiogram Pending studies at discharge: None Labs on day of discharge: Labs from last 24 hours 12/31/24 09:05 WBC 8.4 RBC 4.39 Hgb 13.4 Hct 41.3 MCV 94.1 MCH 30.5 MCHC 32.4 RDW 13.5 Plt Count 336 MPV 10.2 Immature Gran % (Auto) 0.4 Neut % (Auto) 73.8 H Lymph % (Auto) 19.2 Ritchie % (Auto) 5.8 Eos % (Auto) 0.7 Baso % (Auto) 0.1 L Lymph # (Auto) 1.62 Ritchie # (Auto) 0.5 Eos # (Auto) 0.1 Baso # (Auto) 0.0 Abs Immat Gran (auto) 0.03 Absolute Neuts (auto) 6.2 Absolute Nucleated RBC 0.000 Nucleated RBC % 0.0 Sodium 143 Potassium 4.2 Chloride 105 Carbon Dioxide 28 Anion Gap 10 BUN 11 Creatinine 0.64 L Estim Creat Clear Calc 57 Estimated GFR > 60 Glucose 99 Calcium 9.7 Magnesium 2.3 Total Bilirubin 0.5 AST 26 ALT 19 Alkaline Phosphatase 83 Total Protein 7.0 Albumin 4.3 Procedures/Treatments: Nuclear medicine stress test Discharge Plan Discharge Attending physician on discharge: Bernabe Nath Consulting providers: Mel Garcia Discharging Clinician: Shirley Rogers Anticipated Discharge Date/Time: 12/31/24 14:27 Patient Disposition: Home, Self-Care Activity: as tolerated Diet: as tolerated and heart healthy Discharge Instructions: * Follow up with cardiology, call for appointment * Follow up with primary care doctor in 1 week * You have been started on Lisinopril for your high blood pressure readings. Continue to take this med. Let your primary care doctor know we started you on this medication. Patient Instructions: Lisinopril (By mouth), Angina (DC), Hypertension (DC) Patient Language: Sinhala Stand Alone Forms: General Discharge Information Follow-up/Referrals: Rashawn Monroe MD [Primary Care Provider] - 1 Week Galo Taveras MD [Physician] - Call for Appointment Discharge Medications: New lisinopril 20 mg Tablet 20 mg PO QAM Qty: 30 0RF Continued Centrum Silver 400-250 mcg tablet,chewable 1 tablet PO DAILY alprazolam [Xanax] 0.25 mg tablet 0.25 mg PO TID PRN (Reason: anxiety) Qty: 60 0RF acetaminophen 500 mg tablet 500 mg PO Q6H PRN (Reason: pain or fever) ibuprofen [IBU] 400 mg tablet 400 mg PO Q6H PRN (Reason: pain) cyanocobalamin (vitamin B-12) 1,000 mcg capsule 1,000 mcg PO DAILY potassium 99 mg tablet 99 mg PO DAILY escitalopram oxalate 10 mg tablet 10 mg PO HS glucosamine-chondroitin [Osteo Bi-Flex] 250-200 mg tablet 2 tablet PO ONCE Rx Instructions: give after food/meal calcium citrate-vitamin D3 250 mg-5 mcg (200 unit) tablet 2 tablet PO DAILY Rx Instructions: takes at 1700 rizatriptan [Maxalt-REMEDIAL MASSEUR] 10 mg tablet,disintegrating 10 mg PO DAILY PRN (Reason: migraine) Qty: 10 5RF Rx Instructions: one po prn migraines, may repeat in 2hrs, max 2 per day Date of admission: 12/30/24 15:15 Primary Care Provider: Rashawn Monroe Admitting Provider: Thomas Guerin Attending physician on admission: Thomas Guerin Condition: Improved Quality VTE Prophylaxis VTE prophylaxis: pharmacologic ordered Hospitalist MIPS Heart Failure (Exclusion) Patient has history of Heart Transplant or Left Ventricular Assistive Device?: No IF YES, STOP HERE Heart Failure (Qualifier) Patient has current or prior documentation of LVEF less than or equal to 40%, or mod/servere depressed LVSF?: No IF NO, STOP HERE
== END 2024-12-31 16:45 | disposition home or self-care (01) | DRG 311 ==
LOC: ANHED 19:08 → ANHIMU 19:23
PROVIDERS: Physician Assistant; Admitting Provider General Practice; Emergency Provider Emergency Medicine; PCP Family Medicine; Visit Provider Nurse Practitioner Acute Care
DX: I20.9 Angina pectoris, unspecified (principal); I10 Essential (primary) hypertension; E03.8 Other specified hypothyroidism; K21.9 Gastro-esophageal reflux disease without esophagitis; F32.A Depression, unspecified; F41.0 Panic disorder [episodic paroxysmal anxiety]; M85.80 Other specified disorders of bone density and structure, unspecified site; Z90.49 Acquired absence of other specified parts of digestive tract; Z90.710 Acquired absence of both cervix and uterus; Z90.722 Acquired absence of ovaries, bilateral; Z98.1 Arthrodesis status
CPT/HCPCS: 36415; 71046; 78452; 80048; 80053; 80061; 83690; 83735; 84439; 84443; 84480; 84484; 85025; 85027; 85380; 85610; 85730; 93005; 93017; 93306; 93971; 96374; 96375; 99285; A9270; A9502; G0378; J2405; J2470; J2785

== ENCOUNTER 2025-02-02 12:30 | Outpatient (RCR) | payer MEDICARE, OTHER, SELFPAY ==
--- NOTE | 2025-01-05 12:03 | OPREHPOC ---
Outpatient Therapy Plan of Care This is a Multidisciplinary Plan of Care that may contain components documented by all disciplines (PT, OT, and ST.) PT Problem 1 PT Problem #1 Knowledge Deficit PT Goal 1 Goal / Goal Update *indep with HEP Target Visit 8 PT Problem 2 PT Problem #2 Pain PT Goal 1 Goal / Goal Update * pain at worst of R knee 5/10 Target Visit 8 PT Goal 2 Goal / Goal Update * pt report sleeping, awaken 1x/night due to knee pain Target Visit 8 PT Problem 3 PT Problem #3 Impaired Range of Motion PT Goal 1 Goal / Goal Update *increase R knee extension active to 0' to improve gait pattern Target Visit 8 PT Problem 4 PT Problem #4 Impaired Functional Mobility PT Goal 1 Goal / Goal Update * pt up/down 12 steps with single step pattern and 1 hand railing; report she has gone into her basement without any issues Target Visit 8 PT Goal 2 Goal / Goal Update * pt ambulate 2 minute walking test distance of 450' with good gait pattern and weight shift onto R LE Target Visit 8 PT Problem 5 PT Problem #5 Impaired Strength PT Goal 1 Goal / Goal Update *increase strength of R hip and knee, able to perform single leg standing x 10 seconds Target Visit 8
--- NOTE | 2025-01-05 12:03 | PTOPEVAL1 ---
Assessment and note entered by Katy Vazquez, PT Evaluation Information Assessment Status Evaluation ICD-10 Condition Codes (PT) Pain in right knee M25.561,Encounter for other orthopedic aftercare Z47.89 Other ICD-10 Condition Codes ( S 83.241A R knee meniscal tear PT) Onset May 2024 Subjective Information twisted and originally hurt her knee in May; had R knee arthroscopy in September; had injection and it helped the pain. walking hurts the knee; have not been cleaning the house, started some light cooking and doing dishes problems sleeping due to knee pain; not doing any exercises but trying to walk as can; activity: no assistive device, home with ; have basement- not going down there, all of her craft things are down stairs; prior to surgery walked for fitness, walked dog; Reported Pain Level Pain Score Self Report Additional Pain Score Comments pain range in the past week 2-10/10; medial knee, knee cap; burning and hurts in knee; increase pain: standing/walking tolerance 10-15 minutes; first stand up from sitting down decrease pain: sit, rest, tylenol, ibuprofen, aleve not used ice lately; reinforced use of ice PRN for swelling and pain; report with sleeping, awaken due to knee pain 2-3x /night; educated on use of pillow between knees with sleeping Assessment PT Clinical Summary Shalini is s/p R knee arthroscopy. She reports twisting her knee in May 2024, waited and did not get better, so finally went to and had arthroscopy in Sep 2024. She did not have any therapy after surgery. The injection she received last week helped the pain. Sleeping and activity are limited due to knee pain she has not gone into her basement since surgery LE functional self rating of 74% limitation in activity level. She has not been doing any leg exercises, but walking as she is able to tolerate. With the evaluation: R knee ROM is (-12') to 115' with extension pain more than flexion pain; gait with decreased wt shift onto R LE with hip and knee flexion in stance phase; decreased strength R LE with mat exercises; with 2 minute walking test distance of 375' with pain increase to 5/10; on 4 steps, use of 1 hand railing and single step pattern. Skilled PT services are indicated for modalities to decrease pain, therapeutic exercises to increase R knee ROM and strength, education for HEP and gait pattern. Plan of Care Interventions Electrical Stimulation,Gait Training,Hot Pack/Cold Pack,Intermittent Compression Pump,Manual Therapy ,Neuro Re-education,Patient/Caregiver Education, Therapeutic Activities,Therapeutic Exercise, Ultrasound,Other Other Interventions taping PT Services Indicated Yes Treatment Frequency and 1-2x/wk for 8 visits Duration These treatments will address the objective and functional deficits as defined above. The patient will be advanced safely and appropriately in order for the patient to progress towards his/her prior level of function. Additional exercises will be introduced and as well as a comprehensive home exercise program upon discharge, if needed, ?to ensure carryover of functional gains achieved in the clinic. This treatment plan has been reviewed and agreement upon by the patient.
--- NOTE | 2025-02-02 13:27 | OPREHPOC ---
Outpatient Therapy Plan of Care This is a Multidisciplinary Plan of Care that may contain components documented by all disciplines (PT, OT, and ST.) PT Problem 1 PT Problem #1 Knowledge Deficit PT Goal 1 Goal / Goal Update *indep with HEP 02-02-25 progress goal met continue towards, to progress HEP Target Visit 16 PT Problem 2 PT Problem #2 Pain PT Goal 1 Goal / Goal Update * pain at worst of R knee 5/10 02-02-25 progress goal not met, 10/10 at worst continue towards Target Visit 16 PT Goal 2 Goal / Goal Update * pt report sleeping, awaken 1x/night due to knee pain 02-02-25 progress goal not met. continue towards Target Visit 16 PT Problem 3 PT Problem #3 Impaired Range of Motion PT Goal 1 Goal / Goal Update *increase R knee extension active to 0' to improve gait pattern 02-02-25 progress goal not met, (-10') continue towards Target Visit 16 PT Problem 4 PT Problem #4 Impaired Functional Mobility PT Goal 1 Goal / Goal Update * pt up/down 12 steps with single step pattern and 1 hand railing; report she has gone into her basement without any issues 02-02-25 progress goal partially met; able to perform steps, but not going into basement due to more pain. continue towards goal Target Visit 16 PT Goal 2 Goal / Goal Update * pt ambulate 2 minute walking test distance of 450' with good gait pattern and weight shift onto R LE 02-02-25 progress goal not met continue towards Target Visit 16 PT Problem 5 PT Problem #5 Impaired Strength PT Goal 1 Goal / Goal Update *increase strength of R hip and knee, able to perform single leg standing x 10 seconds 02-02-25 progress goal not met continue towards Target Visit 16
--- NOTE | 2025-02-02 13:28 | PTOPPROG ---
Assessment and note entered by Katy Vazquez, PT Assessment Status Progress ICD-10 Condition Codes (PT) Pain in right knee M25.561,Encounter for other orthopedic aftercare Z47.89 Other ICD-10 Condition Codes ( S 83.241A R knee meniscal tear PT) Onset May 2024 Subjective Information knee is hurting more since the therapist tried to push it straight; back to where I started, was doing good and now set back and cannot do anything have not been walking or doing the exercises due to pain; was going stepping over each step to her basement, but have not there since had more pain; have not been using the cane or walker; go to the dr later this week; PAIN: range in the past week 4-10/10; medial- inferior patella; hurts, finnegan increase pain: standing, do any of the exercises from therapy decrease pain: sit, rest, tylenol, ice with sleeping, awaken from sleeping, 5-6 x/night reported tolerance with standing/walking 10-15 minutes Assessment PT Clinical Summary Shalini has received 8 PT sessions. Compared to the initial evaluation: pain rating from 2-10/10 to 4-10/10; reported activity standing/walking tolerance same at 10-15 minutes and sleeping awaken due to pain 2-3x to 5-6 x/ night; LE functional scale activity limitation from 74 to 85% limitation; edema over R knee with circumferential measurement 3 cm larger than L; 2 minute walking test distance from 375' to 200'. R knee ROM: (-10') to 130'- pain with both end ranges. Shalini had improved but last week with stretching knee extension, had had increase pain since then. The goals were partially achieved. Continue PT treatment. Plan of Care Interventions Electrical Stimulation,Gait Training,Hot Pack/Cold Pack,Intermittent Compression Pump,Manual Therapy ,Neuro Re-education,Patient/Caregiver Education, Therapeutic Activities,Therapeutic Exercise, Ultrasound,Other Other Interventions taping PT Services Indicated Yes Treatment Frequency and 1-2 x/wk for 8 visits Duration These treatments will address the objective and functional deficits as defined above. The patient will be advanced safely and appropriately in order for the patient to progress towards his/her prior level of function. Additional exercises will be introduced and as well as a comprehensive home exercise program upon discharge, if needed, ?to ensure carryover of functional gains achieved in the clinic. This treatment plan has been reviewed and agreement upon by the patient.
--- NOTE | 2025-02-09 09:07 | PTOPDC ---
Assessment and note entered by Katy Vazquez, PT Assessment Status Discharge - Pt Not Present ICD-10 Condition Codes (PT) Pain in right knee M25.561,Encounter for other orthopedic aftercare Z47.89 Other ICD-10 Condition Codes ( S 83.241A R knee meniscal tear PT) Onset May 2024 Subjective Information pt called and stated that she saw the dr and he told her she did not need any more therapy. Assessment PT Clinical Summary Radha called and canceled her remaining appointment. She saw the dr and he told her she did not need any additional therapy. Discharge PT services. Plan of Care PT Services Indicated No
== END 2025-02-09 09:57 | disposition home or self-care (01) ==
LOC: ANHPT 12:30
PROVIDERS: PCP Family Medicine; Visit Provider Orthopaedic Surgery
DX: S83.241A Other tear of medial meniscus, current injury, right knee, initial encounter (principal)
CPT/HCPCS: 97014; 97110; 97116; 97161; 97530; G0283

== ENCOUNTER 2025-03-26 16:38 | Emergency (ER) | payer MEDICARE, OTHER, SELFPAY ==
[2025-03-26] VITALS (10 sets, daily range): BP systolic 128–184; BP diastolic 75–135; PULSE 84–170; RESP 13–30; TEMP 37.4; O2SAT 96–100
--- NOTE | ~2025-03-26 | CT_ITS ---
CTA brain carotid Ordering provider: Roni Hurtado History: . headache, dizziness . Comparison: None. Technique: CT angiogram head and neck was performed following timed intravenous injection of contrast . Thin slice axial images and reformatted coronal images were obtained. Three dimensional reformatted images of the brain were also obtained using a [employer] workstation. Radiation reduction technique ut ilized.The dose-length product was 1528.39 mGy-cm. 100 mL Omnipaque 350 was given IV. FINDINGS: HEAD: --ANTERIOR AND MIDDLE CEREBRAL ARTERIES AND BRANCHES: Normal caliber and contour. --INTERNAL CAROTID ARTERIES: Mild atheromatous disease but no significant stenosis. No occlusion. --BASILAR ARTERY AND BRANCHES: Normal caliber and contour. No atheromatous disease. --POSTERIOR CEREBRAL ARTERIES: Normal caliber and contour --POSTERIOR COMMUNICATING ARTERIES: The right is demonstrated and continues as the posterior cerebral artery. The left is not visualized which is probably related to congenital absence or small size. --ANEURYSM: None visualized. --BRAIN: Normal for patient's age. --BONES AND SUPERFICIAL SOFT TISSUES: Normal. --PARANASAL SINUSES AND MASTOIDS: Well aerated. NECK: --RIGHT CERVICAL CAROTID SYSTEM: Normal caliber and contour. Percent stenosis per NASCET criteria is 0%. No carotid dissection. Otherwise, no significant atheromatous disease or stenosis of the cervica l carotid system. --LEFT CERVICAL CAROTID SYSTEM: Normal caliber and contour. Percent stenosis per NASCET criteria is 0%. No carotid dissection. Otherwise, no significant atheromatous disease or stenosis of the cervical carotid system. --VERTEBRAL ARTERIES: Normal caliber and contour. --VISUALIZED AORTIC ARCH AND BRANCHING VESSELS: Mild atheromatous disease but no significant stenosis . --SOFT TISSUES: Normal. --CERVICAL SPINE: Age appropriate degenerative changes. Postoperative changes. Right internal jugular vein is not demonstrated with collateral veins seen posteriorly. IMPRESSION: 1. Normal CTA head and neck. Percent stenosis per NASCET criteria is 0%. 2. Right posterior communicating artery continues as the posterior cerebral artery. Reviewed, dictated and finalized at location A. IMPRESSION: 1. Normal CTA head and neck. Percent stenosis per NASCET criteria is 0%. 2. Right posterior communicating artery continues as the posterior cerebral ar bravo.
--- NOTE | ~2025-03-26 | XR_ITS ---
XR chest 1V portable Ordering provider: Roni Hurtado MD History: 69 years Female with . SOA . Comparison: December 29, 2024 FINDINGS: MEDIASTINUM: The cardiac silhouette is not enlarged. LUNGS: No infiltrates, effusions or pneumothorax. OTHER: No free air under the diaphragm. IMPRESSION: No acute cardiopulmonary pathology. Reviewed, dictated and finalized at location A.
--- NOTE | 2025-03-26 17:07 | ECG_ITS ---
Test Date: 2025-03-26 17:22:20 Measurements Intervals [place] Rate: 126 P: 42 ND: 120 QRS: 61 QRSD: 71 T: 65 QT: 311 QTc: 452 Interpretive Statements SINUS TACHYCARDIA MODERATE ST DEPRESSION [0.05+ mV ST DEPRESSION] ABNORMAL ECG Compared to ECG 12/29/2024 21:44:55 ST (T wave) deviation now present Electronically Signed On 03-27-2025 09:49:27 CDT by Jim Whitfield M.D.
[2025-03-26] MEDS: LORazepam INJ (*CRX) 2 MG/ML VIAL 0.5 MG IV PUSH (17:09)
[2025-03-26] MEDS: SODIUM CHLORIDE 0.9% IV 1,000 ML 999 ML IV CONT (17:21)
[2025-03-26 17:48] LABS: Basophils Percent Auto 0.2 % (0.2-1.2); Eosinophils Absolute Auto 0.1 K/mm3 (0-0.3); Eosinophils Percent Auto 0.5 % (0-4.4); Hematocrit 36.8 % (37.0-47.0); Hemoglobin 12.2 g/dL (12.0-15.0); Immature Granulocyte Absolute 0.03 K/mm3 (0.00-0.031); Immature Granulocyte Percent A 0.3 % (0-0.5); Lymphocytes Absolute Auto 1.37 K/mm3 (0.9-3.2); Lymphocytes Percent Auto 13.7 % (18.3-44.2); Mean Corpuscular HGB Conc 33.2 g/dl (32-36); Mean Corpuscular Hemoglobin 30.1 pg (26-34); Mean Corpuscular Volume 90.9 fl (80-100); Mean Platelet Volume 9.7 fl (7.4-10.4); Monocytes Absolute Auto 0.8 K/mm3 (0.1-0.6); Monocytes Percent Auto 7.6 % (2.6-8.5); Neutrophils Absolute Auto 7.7 K/mm3 (1.3-6.7); Neutrophils Percent Auto 77.7 % (45.5-73.1); Platelet Count Result 328 k/mm3 (150-375); Red Blood Count 4.05 M/mm3 (4.2-5.4); Red Cell Distribution Width 13.5 % (11.5-14.5)
--- NOTE | 2025-03-26 17:54 | ED.GENADULT ---
HPI - General Adult General Chief complaint: Dizziness Stated complaint: Dizziness-felt nauseated Time Seen by Provider: 03/26/25 17:02 History of Present Illness HPI narrative: Patient is a 69-year-old female with history of migraine as well as anxiety who presents ER with reports of feeling like she might pass out and becoming dizzy that then led to her becoming short of breath and anxious. She is seemingly marching while lying in bed. She is difficult to calm down. She will stop all per movements and talk to me time to time. Reports she had frontal headache that is now gone prior to getting dizzy. Does not feel like a typical migraine. No numbness or weakness to an arm or leg. No slurred speech. No facial droop. Related Data Home Medications Medication Instructions Recorded Confirmed Last Taken Type pvguntyqoloe-tyuamjw-ebglq acid 1 tablet PO DAILY 01/31/24 02/05/25 12/29/24 History 400 mcg-lutein 250 mcg chewable tablet (Centrum Silver) acetaminophen 500 mg tablet 500 mg PO Q6H PRN pain or fever 12/29/24 02/05/25 Unknown History calcium 250 mg (as 2 tablet PO DAILY 12/29/24 02/05/25 12/28/24 History citrate)-vitamin D3 5 mcg (200 unit) tablet cyanocobalamin (vitamin B-12) 1,000 mcg PO DAILY 12/29/24 02/05/25 12/29/24 History 1,000 mcg capsule escitalopram oxalate 10 mg tablet 10 mg PO HS 12/29/24 02/05/25 12/28/24 History glucosamine-chondroitin 250 mg-200 2 tablet PO ONCE 12/29/24 02/05/25 12/29/24 History mg tablet (Osteo Bi-Flex) Allergies Allergy/AdvReac Type Severity Reaction Status Date / Time methylprednisolone AdvReac Intermediate Headache Verified 03/26/25 16:41 Review of Systems Review of Systems: All systems reviewed & are unremarkable except as noted in HPI and below Constitutional: Constitutional: Reports no additional constitutional complaints ENT: Reports system reviewed and no additional complaints, except as documented Cardiovascular: Cardiovascular: Reports no additional cardiovascular complaints Respiratory: Respiratory: Reports no additional respiratory complaints Musculoskeletal: Musculoskeletal: Reports no additional musculoskeletal complaints Neurologic: Reports system reviewed and no additional complaints, except as documented [facility] Past Medical History Medical History HTN (hypertension) Seasonal allergic rhinitis Gastro-esophageal reflux disease without esophagitis Subclinical hyperthyroidism Major depressive disorder, single episode, unspecified Osteopenia Panic disorder [episodic paroxysmal anxiety] Surgical History Surgical History History of dilation and curettage History of appendectomy History of arthroscopy of right knee (09/2024) with partial meniscectomy History of tonsillectomy History of hysterectomy with oophorectomy History of fusion of cervical spine Family History Family History Father Leukemia Mother Family history of osteoporosis Heart disease Thyroid disorder Other Asthma Family history of arthritis Family history of hearing loss Family history of thyroid disease Social History Social History (Updated 02/05/25 @ 12:52 by Norma Dumont [facility]) Social History: Surrogate medical decision maker: Pierre Lopez, spouse ([phone]). Code status: Full code. Smoking status: Never smoker Second hand tobacco smoke exposure: No Alcohol intake: never Substance use: never Substance use type: does not use Current Housing: Decline to Answer Concerned About Future Housing: Decline to Answer Difficulty Paying Gas/Electric Bills: Decline to Answer Difficulty Paying for Meds: Decline to Answer Currently Unemployed: Decline to Answer Education: Decline to Answer Difficulty w/ Childcare or Family Care: Decline to Answer Living arrangements: with family Additional living arrangements comments: Lives with in [place]. 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. Spiritual care concerns: No Exam Narrative: GENERAL: Anxious-appearing, well-nourished, and in mild distress. HEAD: Normocephalic, atraumatic. EYES: PERRL and EOMI. ENT: Mucous membranes moist. CHEST: Clear to auscultation. Mild respiratory distress. HEART: Tachycardic and regular. Normal peripheral pulses. ABDOMEN: Soft, nontender, nondistended. EXTREMITIES: Normal range of motion. No edema. Moving legs back and forth while sitting in bed like she is marching. SKIN: Warm, dry, no rash. NEURO: No focal deficits. No facial droop. No expressive aphasia. No dysarthria. Alert and oriented x3. PSYCH: N anxious, otherwise normal thought content. Course Course Emergency Course: Patient improved significantly after 1.5 mg of Ativan. She then became hypoxic briefly and was given O2 but is now awake and breathing without issue. Tachypnea is absent. No longer tachycardic. Vital Signs Vital signs: Vital Signs Pulse Rate 170 H 03/26/25 16:55 Respiratory Rate 30 H 03/26/25 16:55 Blood Pressure 173/135 H 03/26/25 16:55 Pulse Oximetry 97 03/26/25 16:55 Oxygen Delivery Room Air 03/26/25 16:55 Temperature 99.4 F 03/26/25 17:23 Pulse Rate 119 H 03/26/25 17:48 Respiratory Rate 20 03/26/25 17:48 Blood Pressure 143/87 H 03/26/25 17:48 Pulse Oximetry 100 03/26/25 17:48 Oxygen Delivery Room Air 03/26/25 16:55 Medical Decision Making Vital Signs Vital Signs: Vital Signs Pulse Rate 170 H 03/26/25 16:55 Respiratory Rate 30 H 03/26/25 16:55 Blood Pressure 173/135 H 03/26/25 16:55 Pulse Oximetry 97 03/26/25 16:55 Oxygen Delivery Room Air 03/26/25 16:55 Temperature 99.4 F 03/26/25 17:23 Pulse Rate 119 H 03/26/25 17:48 Respiratory Rate 20 03/26/25 17:48 Blood Pressure 143/87 H 03/26/25 17:48 Pulse Oximetry 100 03/26/25 17:48 Oxygen Delivery Room Air 03/26/25 16:55 Lab Data 03/26/25 17:39 03/26/25 17:39 Labs: Lab Results 03/26/25 Range/Units 17:39 WBC Pending RBC Pending Hgb Pending Hct Pending MCV Pending MCH Pending MCHC Pending RDW Pending Plt Count Pending MPV Pending Immature Gran % (Auto) Pending Neut % (Auto) Pending Lymph % (Auto) Pending Conway % (Auto) Pending Eos % (Auto) Pending Baso % (Auto) Pending Lymph # (Auto) Pending [place] # (Auto) Pending Eos # (Auto) Pending Baso # (Auto) Pending Abs Immat Gran (auto) Pending Absolute Neuts (auto) Pending Absolute Nucleated RBC Pending Nucleated RBC % Pending Sodium Pending Potassium Pending Chloride Pending Carbon Dioxide Pending Anion Gap Pending BUN Pending Creatinine Pending Estim Creat Clear Calc Pending Estimated GFR Pending Glucose Pending Calcium Pending Total Bilirubin Pending AST Pending ALT Pending Alkaline Phosphatase Pending Total Protein Pending Albumin Pending Imaging Data Radiologist's impression: ITS Impressions Chest X-Ray 03/26/25 18:04 IMPRESSION: No acute cardiopulmonary pathology. Head/Neck CTA 03/26/25 21:59 IMPRESSION: 1. Normal CTA head and neck. Percent stenosis per NASCET criteria is 0%. 2. Right posterior communicating artery continues as the posterior cerebral artery. ECG Data EKG #1: ECG completion date: 03/26/25 ECG completion time: 22:34 EKG Interpretation: tachycardia (126), sinus rhythm, non-specific ST changes, normal QRS, normal QT and NL axis Discharge Plan Discharge Clinical Impression: Anxiety Patient Disposition: Home Condition: Stable Instructions: Anxiety (ED) Additional Instructions: Try to stay well hydrated at home. Please return to the emergency department if you develop worsening of your headache or a new headache which is severe, associated with vision changes, associated with neck stiffness or fever, or if it is different from any other headache that you have had before. Return to the emergency department if you develop numbness, weakness or tingling or problems with coordination, or if you develop severe nausea and vomiting and are unable to keep down fluids at home. Patient Language: [place] Island[place] Prescriptions: No Action Centrum Silver 400-250 mcg tablet,chewable 1 tablet PO DAILY alprazolam [Xanax] 0.25 mg tablet 0.25 mg PO TID PRN (Reason: anxiety) Qty: 60 0RF acetaminophen 500 mg tablet 500 mg PO Q6H PRN (Reason: pain or fever) cyanocobalamin (vitamin B-12) 1,000 mcg capsule 1,000 mcg PO DAILY escitalopram oxalate 10 mg tablet 10 mg PO HS glucosamine-chondroitin [Osteo Bi-Flex] 250-200 mg tablet 2 tablet PO ONCE Rx Instructions: give after food/meal calcium citrate-vitamin D3 250 mg-5 mcg (200 unit) tablet 2 tablet PO DAILY Rx Instructions: takes at 1700 rizatriptan [Maxalt-PACKAGING CLERK] 10 mg tablet,disintegrating 10 mg PO DAILY PRN (Reason: migraine) Qty: 10 5RF Rx Instructions: one po prn migraines, may repeat in 2hrs, max 2 per day lisinopril 20 mg tablet 20 mg PO QAM Qty: 30 5RF diclofenac sodium 75 mg tablet,delayed release (DR/EC) 75 mg PO BID Qty: 60 0RF Follow-up/Referrals: Rashawn Monroe MD [Primary Care Provider] - 1 Week
[2025-03-26 17:58] LABS: Alanine Aminotransferase 24 U/L (6-35); Albumin Level 4.2 g/dL (3.5-5.1); Alkaline Phosphatase 77 U/L (38-126); Anion Gap 15 mmol/L (4-12); Aspartate Amino Transferase 29 U/L (14-36); Bilirubin,Total 0.4 mg/dL (0.2-1.3); Blood Urea Nitrogen 13 mg/dL (7-17); Calcium 9.2 mg/dL (8.4-10.2); Carbon Dioxide 15 mmol/L (22-30); Chloride 102 mmol/L (98-107); Estimated CRCL calculation 49 ml/min; Estimated Glomerular Filt Rate > 60; Glucose 115 mg/dL (65-110); Potassium 3.8 mmol/L (3.4-5.0); Sodium 132 mmol/L (137-145)
[2025-03-26] MEDS: LORazepam INJ (*CRX) 2 MG/ML VIAL 1 MG IV PUSH (18:07)
[2025-03-26] MEDS: MECLIZINE HCL 25 MG TABLET PO (19:36)
== END 2025-03-26 23:00 | disposition home or self-care (01) ==
PROVIDERS: Emergency Provider Emergency Medicine; PCP Family Medicine
DX: F41.9 Anxiety disorder, unspecified (principal); I10 Essential (primary) hypertension
CPT/HCPCS: 36415; 70496; 70498; 71045; 80053; 85025; 93005; 96361; 96374; 99284; A9270; J2060; J7030; Q9967

== ENCOUNTER 2025-09-23 14:51 | Outpatient (CLI) | payer MEDICARE, OTHER, SELFPAY ==
--- NOTE | ~2025-09-23 | DEXA_ITS ---
Bone Density Report Name: TONI RECIO Age: 70 Sex: Female Ethnicity: White Date of : 1955 Indication: osteopenia; parental hip fracture; height loss; hysterectomy; Referring Provider: CHARISMA GERARDO Study: Bone densitometry was performed. Exam Date: September 23, 2025 Accession number: [id number] Bone Density: Region BMD T-score Z-score Classification AP Spine(L1-L4) 0.901 -1.3 0.9 Osteopenia Femoral Neck (Left) 0.683 -1.5 0.4 Osteopenia Total Hip (Left) 0.862 -0.7 1.0 Normal Femoral Neck (Right) 0.673 -1.6 0.3 Osteopenia Total Hip (Right) 0.883 -0.5 1.1 Normal Total Hip Mean 0.873 -0.6 1.1 Normal World Health Organization criteria for BMD impression classify patients as: Normal (T-score at or above -1.0), Osteopenia (T-score between -1.0 and -2.5), or Osteoporosis (T-score at or below -2.5). 10-year Fracture Risk(1): Major Osteoporotic Fracture 16% Hip Fracture 4.9% Reported Risk Factors: [place] (), Neck BMD=0.683, BMI=26.7, parental fracture (1) FRAX(R) Version 3.08. Fracture probability calculated for an untreated patient. Fracture probability may be lower if the patient has received treatment. Previous Exams: Region Exam Age BMD T-score BMD Change BMD Change Date g/cm2 vs Baseline vs Previous AP Spine (L1-L4) 09/23/2025 70 0.901 -1.3 -0.020 (-2.2%) -0.020 (-2.2%) 02/27/2019 63 0.921 -1.1 Total Hip(Left) 09/23/2025 70 0.862 -0.7 -0.055 (-6.0%) -0.055 (-6.0%) 02/27/2019 63 0.918 -0.2 Total Hip(Right) 09/23/2025 70 0.883 -0.5 -0.026 (-2.8%) -0.026 (-2.8%) 02/27/2019 63 0.909 -0.3 *Denotes significance at 95% confidence level, LSC for AP Spine = 0.022 g/cm2, LSC for Total Hip = 0.027 g/cm2 Clinical Information Provided by Patient: Parent has had a hip fracture Has used the following medications: Fosamax (i.e. alendronate), HRT (i.e. estrogen/hormone therapy), Vitamin D, Calcium Has the following medical conditions: Hysterectomy Patient maximum height was 63.5 Menopause Age: 31 Drinks caffeinated beverages Onset of menses at age 12 Number of children 2 Impression: The patient has low bone mass, based on the Right Femoral Neck T-score. The patient has an estimated ten-year risk of hip fracture of 4.9% and an estimated ten-year risk of major fracture of 16%, based on the WHO FRAX algorithm. The patient has risk factors, including: parental hip fracture. The BMD for the Total Hip(Left) decreased, changing by -6.0% since the last DXA exam. Discussion: BONE DENSITY IS LOW AT ONE OR MORE SKELETAL SITES. THE PATIENT'S BMD AND CLINICAL RISK FACTORS CONTRIBUTE TO THIS PATIENT'S INCREASED RISK OF FRACTURE. This patient's lowest T-score is low at one or more skeletal sites. It meets the World Health Organization's (WHO) criteria for ?low bone mass? (T-score between -1.0 and -2.5). The patient's 10-year risk of hip fracture as calculated by FRAX exceeds the threshold where pharmacological therapy is recommended by the National Osteoporosis Foundation (NOF). However, all treatment decisions require clinical judgment and consideration of individual patient factors, including patient preferences, comorbidities, previous drug use, risk factors not captured in the FRAX model (e.g., frailty, falls, vitamin D deficiency, increased bone turnover, interval significant decline in bone density) and possible under or overestimation of fracture risk by FRAX. The patient should follow a healthful lifestyle (good nutrition with adequate calcium and vitamin D, and appropriate weight-bearing exercise). Follow-Up: Consider a repeat BMD and Vertebral Fracture Assessment (VFA) exam in 2 years or sooner if medically necessary, to reassess this patient's status. Reported by: MEHDI on 09/23/2025 3:33:00 PM. Reviewed, dictated and finalized at location A.
--- NOTE | ~2025-09-23 | MM_ITS ---
EXAMINATION: MM screening lydia BI w ramni HISTORY: Screening TECHNIQUE: Craniocaudal and mediolateral oblique 3-D tomosynthesis images were obtained and synthetic 2-D images were generated. CAD analysis was submitted and interpreted. COMPARISON: 02/27/2019 BREAST PARENCHYMAL COMPOSITION: Dense: The breasts are heterogeneously dense, which may obscure small masses FINDINGS: There is no evidence of suspicious mass, calcification, or architectural distortion to suggest malignancy in either breast. There has been no suspicious interval change. IMPRESSION: 1. No mammographic evidence of malignancy. 2. Recommend routine screening mammography in one year. BI-RADS Category 1: Negative Reviewed, dictated and finalized at location B. N [employer]OURCES DISTRICT MANAGER
== END 2025-09-23 14:52 | disposition home or self-care (01) ==
LOC: ANHFOHIMG 14:53
PROVIDERS: PCP Family Medicine; Visit Provider Family Medicine
DX: Z12.31 Encounter for screening mammogram for malignant neoplasm of breast (principal); M85.89 Other specified disorders of bone density and structure, multiple sites; Z78.0 Asymptomatic menopausal state
CPT/HCPCS: 77063; 77067; 77080